=== PATIENT | male | born 1960 | race Caucasian/White ===

== ENCOUNTER 2025-02-25 21:00 | Inpatient (IN) ==
[2025-02-25 21:24] LABS: Hematocrit (blood only) 44.2 % (42.0-52.0); Hemoglobin 15.4 g/dL (14.0-18.0); Immature Granulocytes # (auto) 0.03 K/uL (0.01-0.20); Immature Granulocytes % (auto) 0.4 %; Mean Corpuscular Hemoglobin 30.3 pg (25.0-34.0); Mean Corpuscular Volume 86.8 fL (80.0-100.0); Platelet Count 225 K/uL (130-400); RDW Standard Deviation 42.8 fL (36.4-46.3); Red Blood Count 5.09 M/uL (4.70-6.10); White Blood Count 8.37 K/ul (4.8-10.8)
[2025-02-25 21:40] LABS: Alanine Aminotransferase 34 U/L (7-52); Albumin Globulin Ratio 1.1 (0.9-2); Albumin Level 4.0 gm/dl (3.4-5.0); Alkaline Phosphatase 102 U/L (34-104); Anion Gap 7 (3-11); Bilirubin,Total 0.7 mg/dl (0.2-1.0); Blood Urea Nitrogen 19 mg/dl (6-23); Calcium 8.9 mg/dl (8.6-10.3); Carbon Dioxide 27 mmol/L (21-32); Chloride 104 mmol/L (98-107); Globulin 3.8 gm/dl (2.5-4.0); Glucose 118 mg/dl (70-99(Fasting)); Lipase 25 U/L (11-82); Potassium 3.7 mmol/L (3.5-5.1); Sodium 138 mmol/L (136-145); Total Protein 7.8 gm/dl (6.0-8.3)
[2025-02-25] MEDS: SODIUM CHLORIDE 0.9% 1,000 ML IV ONE (21:46)
[2025-02-25] MEDS: ONDANSETRON INJ 2 MG/ML 2 ML VIAL IV STA (21:46)
[2025-02-25] MEDS: MoRPHine SULFATE 4 MG/ML 1 ML CARP\\VIAL IV STA (21:46)
[2025-02-25] MEDS: FAMOTIDINE 20MG IV PUSH 20 MG/5 ML SYR IV STA (21:46)
[2025-02-25] MEDS: OPTIRAY 320 100ml IV ONE (22:05)
--- NOTE | 2025-02-25 22:08 | Emergency Department Note ---
Impression & Plan Acute cholecystitis, Abdominal pain, acute, right upper quadrant ED Provider Note HISTORY OF PRESENT ILLNESS: Patient is a 64-year-old male presenting with right upper quadrant abdominal pain. Patient reports he has been having intermittent pain in his right upper quadrant for the last few days. He states that 3 days ago he had [place] Here he reports that it was diffusely across his upper abdomen and he felt nauseous. Described it as a burning sensation. He reports that after eating dinner this evening he had another bout of the pain. He rated it as 10 out of 10 and located to the right upper quadrant and said it was very sharp and radiated into his right posterior shoulder. He reports abdominal surgical history significant for an appendectomy. He denies any measured fevers but does report over the last few days he has had sweats and chills. Denies any dysuria or hematuria. ROS: as above PHYSICAL EXAM: Constitutional: Patient appears in no acute distress. HENT: Head: Normocephalic and atraumatic. Eyes: EOMI, PERRL Mouth/Throat: Mucous membranes moist. Neck: Trachea midline. Neck supple. Cardiovascular: RRR, No murmurs, rubs or gallops. Intact distal pulses. Pulmonary/Chest: No respiratory distress. Breath sounds clear and equal bilaterally. No wheezes or rales. Abdominal: Abdomen soft, no rebound or guarding. RUQ TTP Musculoskeletal: No edema, tenderness or deformity noted. Skin: Warm and dry. No rash, erythema, pallor or cyanosis Psychiatric: Appropriate mood and affect for situation. Neurological: Alert and keenly responsive. CN II-XII grossly intact, moving all extremities equally and fully. MDM: - Vitals signs showed hypertension - History obtained via patient. History as above. - Chronic conditions affecting care: HTN; CAD (S/p PCI) - Differential diagnoses include, but are not limited to: Biliary colic; cholangitis; cholecystitis; hepatitis; right lower lobe pneumonia; pulmonary embolism; pyelonephritis; herpes zoster; perforated duodenal ulcer - Order placed for continuous cardiac monitoring. At this time, monitor showed rate of 83 bpm with normal sinus rhythm, per my interpretation. - External medical records reviewed. - Laboratory workup interpreted by myself showed normal WBC; stable electrolytes; normal total bilirubin; slightly elevated AST (42); normal lipase - CT abdomen/pelvis with IV contrast showed a few stones in the neck of the gallbladder with mucosal thickening and distention concerning for acute cholecystitis. - RUQ US ordered. - Patient initially given 20 mg IV Pepcid, 4 mg IV Zofran and 4 mg IV morphine with 1 L normal saline for symptomatic management. Given IV Zosyn. - Discussed case with general surgery NEENA, Kashif Webb PA-C, at 22:23. Will be by to evaluate patient. - Updated by NEENA with surgery at 23:09 and recommended admission to hospitalist. - Discussion was had with welfare case worker about patient's case and need for admission - Hospitalist consulted for admission - [facility] [place] [facility] and management. ASSESSMENT AND PLAN: Diagnosis: Acute cholecystitis; acute right upper quadrant abdominal pain Plan: Admit Past Med/Surg History Problem List (Updated 02/25/25 @ 23:17 by Radha Randle MD) Abdominal pain, acute, right upper quadrant (Acute) Acute cholecystitis (Acute) Social History Smoking Status: Former smoker Preferred Language: Upper Sorbian Feels Safe at Home: Yes Allergies Allergies Allergy/AdvReac Type Severity Reaction Status Date / Time No Known Allergies Allergy Unverified 12/16/12 21:55 Home Meds Home Medications Medication Instructions Recorded Confirmed aspirin 81 mg tablet,delayed 81 mg PO QAM 02/25/25 02/25/25 release atorvastatin 80 mg tablet 80 mg PO QDL 02/25/25 02/25/25 carvedilol 12.5 mg tablet 12.5 mg PO BID 02/25/25 02/25/25 lisinopril 10 mg tablet 15 mg PO QAM 02/25/25 02/25/25 Results & Data (ED) Vital Signs Vital Signs - 24 hr 02/25/25 21:01 02/25/25 21:17 02/25/25 21:43 Temperature 36.5 C Temperature Source Temporal Artery Scan Pulse Rate 106 H 73 Pulse Rate [Apical] 83 Pulse Rhythm [Apical] Regular Pulse Strength [Apical] Normal Respiratory Rate 18 18 Respiratory Effort / Characteristics Non-Labored Spontaneous Non-Labored Spontaneous Respiratory Depth Normal Normal Respiratory Pattern Regular Blood Pressure 173/97 H Blood Pressure [Left Arm] 165/94 H Blood Pressure Mean 122 Blood Pressure Mean [Left Arm] 117 Pulse Oximetry 99 99 Oxygen Delivery Method Room Air Sepsis Recent Fever Within 48 Hours No Sepsis New/Unexplained Change in Mental Status N/A Sepsis Action Taken by Nursing No Action Required Laboratory Data 02/25/25 21:13 02/25/25 21:13 Lab Results 02/25/25 02/25/25 Range/Units 21:13 22:27 WBC 8.37 (4.8-10.8) K/ul RBC 5.09 (4.70-6.10) M/uL Hgb 15.4 (14.0-18.0) g/dL Hct 44.2 (42.0-52.0) % MCV 86.8 (80.0-100.0) fL MCH 30.3 (25.0-34.0) pg MCHC 34.8 (32.0-36.0) g/dL RDW Std Deviation 42.8 (36.4-46.3) fL RDW Coeff of Tommy 13.4 (11.5-14.5) % Plt Count 225 (130-400) K/uL MPV 10.2 (9.4-12.4) fL Immature Gran % (Auto) 0.4 % Neut % (Auto) 57.1 % Lymph % (Auto) 27.6 % [place] % (Auto) 12.4 % Eos % (Auto) 1.9 % Baso % (Auto) 0.6 % Neut # (Auto) 4.78 (1.40-6.50) K/uL Lymph # (Auto) 2.31 (1.20-3.40) K/uL [place] # (Auto) 1.04 H (0.11-0.59) K/uL Eos # (Auto) 0.16 (0.00-0.50) K/uL Baso # (Auto) 0.05 (0.00-0.20) K/uL Immature Gran # (Auto) 0.03 (0.01-0.20) K/uL Sodium 138 (136-145) mmol/L Potassium 3.7 (3.5-5.1) mmol/L Chloride 104 (98-107) mmol/L Carbon Dioxide 27 (21-32) mmol/L Anion Gap 7 (3-11) BUN 19 (6-23) mg/dl Creatinine 1.18 (0.6-1.4) mg/dl Est Cr Clr Drug Dosing Not Reportable eGFR 68.91 BUN/Creatinine Ratio 16.1 (10-20) Glucose 118 H (70-99(Fasting)) mg/dl Calcium 8.9 (8.6-10.3) mg/dl Total Bilirubin 0.7 (0.2-1.0) mg/dl AST 42 H (13-39) U/L ALT 34 (7-52) U/L Alkaline Phosphatase 102 (34-104) U/L Total Protein 7.8 (6.0-8.3) gm/dl Albumin 4.0 (3.4-5.0) gm/dl Globulin 3.8 (2.5-4.0) gm/dl Albumin/Globulin Ratio 1.1 (0.9-2) Lipase 25 (11-82) U/L Urine Color Yellow Urine Appearance Clear (Clear) Urine pH 7.5 (4.5-7.5) Ur Specific [place] > 1.045 H (1.000-1.030) Urine Protein Trace H (Negative) Urine Glucose (UA) Negative (Negative) Urine Ketones Trace H (Negative) Urine Blood Negative (Negative) Urine Nitrite Negative (Negative) Urine Bilirubin Negative (Negative) Urine Urobilinogen Positive H (Negative) Ur Leukocyte Esterase Negative (Negative) Urine WBC (Auto) 0-5 (0-5) /hpf Urine RBC (Auto) 3-5 H (0-2) /hpf U Hyaline Cast (Auto) 0-2 (0-2) /lpf U Epithel Cells (Auto) 0-2 (0-2) /hpf Urine Bacteria (Auto) None Seen (None Seen) Urine Comment Administered Medications Discontinued Medications Sodium Chloride (Nss) 1,000 mls @ 999 mls/hr IV .Q1H1M ONE Stop: 02/25/25 22:41 Last Admin: 02/25/25 21:46 Dose: 999 mls/hr Documented By: RACHEALW Famotidine (Pepcid 20mg Iv Push) 20 mg in 5 mls @ 2.5 mls/min IV NOW STA Stop: 02/25/25 21:42 Last Admin: 02/25/25 21:46 Dose: 2.5 mls/min Documented By: INES Piperacillin Sod/Tazobactam Sod (Zosyn) 4.5 gm in 100 mls @ 200 mls/hr IV NOW ONE; Protocol Stop: 02/25/25 22:51 Last Infusion: 02/25/25 23:14 Dose: Infused Documented By: Admin: 02/25/25 22:35 Dose: 200 mls/hr Documented By: GURVINDER Ioversol (Optiray 320 100ml) 90 ml IV ONCE ONE Stop: 02/25/25 22:05 Last Admin: 02/25/25 22:05 Dose: 90 ml Documented By: LOBITO Morphine Sulfate (Morphine Sulfate 4 Mg/Ml 1 Ml Carp\Vial) 4 mg IV NOW STA Stop: 02/25/25 21:42 Last Admin: 02/25/25 21:46 Dose: 4 mg Documented By: INES Ondansetron HCl (Ondansetron Inj 2 Mg/Ml 2 Ml Vial) 4 mg IV NOW STA Stop: 02/25/25 21:42 Last Admin: 02/25/25 21:46 Dose: 4 mg Documented By: INES Imaging Data Radiologist's Impression: Abdomen/Pelvis CT 02/25/25 21:26 Exam(s): CT ABDOMEN + PELVIS With Contrast IV Amt: 90 ml optiray 320 EXAM: CT Abdomen and Pelvis With Intravenous Contrast CLINICAL HISTORY: Reason for exam: RUQ abd pain. TECHNIQUE: Axial computed tomography images of the abdomen and pelvis with intravenous contrast. CTDI is 26.35 mGy and DLP is 1279.89 mGy-cm. Automated exposure control was utilized for the study. A dose lowering technique was utilized adhering to the principles of ALARA. CONTRAST: Patient received 90 ml optiray 320 of IV contrast COMPARISON: CT 12/17/2012. FINDINGS: ABDOMEN: Liver: Unremarkable. Gallbladder and bile ducts: A few stones in the neck of the gallbladder with mucosal thickening and distention. The appearance is concerning for acute cholecystitis. Pancreas: Unremarkable. Spleen: Unremarkable. Adrenals: Unremarkable. Kidneys and ureters: Nonobstructing nephrolithiasis bilaterally. Stomach and bowel: Colonic diverticulosis without acute diverticulitis. PELVIS: Appendix: No findings to suggest acute appendicitis. Bladder: Unremarkable. Reproductive: Unremarkable as visualized. ABDOMEN and PELVIS: Intraperitoneal space: Unremarkable. No free air. No significant fluid collection. Bones/joints: No acute fracture. Soft tissues: Unremarkable. Vasculature: Unremarkable. Lymph nodes: Unremarkable. IMPRESSION: A few stones in the neck of the gallbladder with mucosal thickening and distention. The appearance is concerning for acute cholecystitis. Electronically signed by: Hank Sharma MD 02/25/25 22:21 PM Discharge Plan Visit Data Chief Complaint: Abdominal Pain Stated Complaint: RUQ ABD PAIN PAST ~0.5 HR, OFF & ON PAST FEW DAYS ED Provider: Radha Randle Discharge Problem: Acute cholecystitis, Abdominal pain, acute, right upper quadrant Patient Disposition: Admitted As Inpatient Condition: Fair Forms Stand Alone Forms: My [facility] AnonymAsk Prescriptions Prescriptions: No Action atorvastatin 80 mg tablet 80 mg PO QDL carvedilol 12.5 mg tablet 12.5 mg PO BID lisinopril 10 mg tablet 15 mg PO QAM aspirin [Aspirin Low-Strength] 81 mg Tablet,Delayed Release (Dr/Ec) 81 mg PO QAM Referrals Referrals: Mounika Segura MD [Primary Care Provider] -
--- NOTE | 2025-02-25 22:22 | CT Scan Report ---
Exam(s): CT ABDOMEN + PELVIS With Contrast IV Amt: 90 ml optiray 320 EXAM: CT Abdomen and Pelvis With Intravenous Contrast CLINICAL HISTORY: Reason for exam: RUQ abd pain. TECHNIQUE: Axial computed tomography images of the abdomen and pelvis with intravenous contrast. CTDI is 26.35 mGy and DLP is 1279.89 mGy-cm. Automated exposure control was utilized for the study. A dose lowering technique was utilized adhering to the principles of ALARA. CONTRAST: Patient received 90 ml optiray 320 of IV contrast COMPARISON: CT 12/17/2012. FINDINGS: ABDOMEN: Liver: Unremarkable. Gallbladder and bile ducts: A few stones in the neck of the gallbladder with mucosal thickening and distention. The appearance is concerning for acute cholecystitis. Pancreas: Unremarkable. Spleen: Unremarkable. Adrenals: Unremarkable. Kidneys and ureters: Nonobstructing nephrolithiasis bilaterally. Stomach and bowel: Colonic diverticulosis without acute diverticulitis. PELVIS: Appendix: No findings to suggest acute appendicitis. Bladder: Unremarkable. Reproductive: Unremarkable as visualized. ABDOMEN and PELVIS: Intraperitoneal space: Unremarkable. No free air. No significant fluid collection. Bones/joints: No acute fracture. Soft tissues: Unremarkable. Vasculature: Unremarkable. Lymph nodes: Unremarkable. IMPRESSION: A few stones in the neck of the gallbladder with mucosal thickening and distention. The appearance is concerning for acute cholecystitis. Electronically signed by: Hank Sharma MD 02/25/25 22:21 PM
[2025-02-25] MEDS: PIPERACILLIN/TAZOBACTAM 4.5 GM/100 ML BAG IV ONE (22:35)
[2025-02-25 22:37] LABS: Appearance Urine Clear (Clear); Bacteria Urine Automated None Seen (None Seen); Cast Urine Automated 0-2 /lpf (0-2); Epithelial Cell Urine Auto 0-2 /hpf (0-2); Glucose Urine UA Negative (Negative); WBC Urine Automated 0-5 /hpf (0-5)
--- NOTE | 2025-02-25 23:24 | History & Physical Report ---
Date of Service February 25, 2025 Assessment & Plan (1) Acute cholecystitis: Plan: Assessment and plan below following discussion of case with ED provider and reviewing patient history/pertinent normal/abnormal diagnostic test results. Acute calculous cholecystitis No sepsis for now hx CAD status post stent (2018), stable from cardiac standpoint as of outpatient [facility] cardiology note from March 2024 hypertension, elevated secondary discomfort hyperlipidemia, on statin Rx urolithiasis status post surgery prediabetes, hemoglobin A1c of 5.30 December 2024 past tobacco abuse Admit to [facility] General Surgery consult re: acute cholecystitis (Patient already seen at the ER by provider. Surgery contemplated tomorrow a.m.) Acceptable risk for cardiac complications resulting from prospective procedure Revised Cardiac Risk Index (RCRI): 1. High-risk type of surgery (examples include vascular and any open intraperitoneal or intrathoracic procedures). No 2. History of ischemic heart disease (history of myocardial infarction or positive exercise test, current compliant of chest pain considered to be secondary to myocardial ischemia, use of nitrate therapy, or ECG with pathological Q waves; do not count prior coronary revascularization procedure unless one of the other criteria for ischemic heart disease is present). Yes 3. History of heart failure. No 4. History of cerebrovascular disease. No 5. Diabetes mellitus requiring treatment with insulin. No 6. Preoperative serum creatinine >2.0. No Pt has revised cardiac index score of 1 points. (Class II Risk.) 1.1 % 30-day risk of , MA, or cardiac arrest. Resume home aspirin for secondary CAD prevention once bleeding risk is deemed to be minimal/manageable on General Surgery follow-up evaluation. DVT prophylaxis. SCDs Re: Possible procedure Full code Patient requesting updates providers. Ms. Abena Palacios, contact #[phone]. Text document was generated using [employer] voice recognition software. It may contain grammatical or spelling errors. Kindly contact undersigned for clarification of any documentation item in question. History of Present Illness Chief Complaint: Right-sided abdominal pain Primary Care Provider: Mounika Segura MD History obtained from patient, family, and records. Medical history significant for CAD status post stent (2018), hypertension, hyperlipidemia, urolithiasis status post surgery, GERD, prediabetes, rosacea, past tobacco abuse. 3 days history of intermittent achy right upper quadrant pain with nausea symptoms, somewhat worse after meals. Somewhat burning. Denies chest pain, SOB, fever, chills. Some radiation to the hip right shoulder. Patient had worsening discomfort after dinner tonight. IV Zosyn administered at the ER for cholecystitis. Medical History as above Surgical History : Urologic procedures, appendectomy Family History : Alcoholism, DM, stroke, liver cancer Personal/Social history : Past tobacco abuse, occasional EtOH intake, retired [employer] employee Allergies Allergy/AdvReac Type Severity Reaction Status Date / Time No Known Allergies Allergy Unverified 12/16/12 21:55 Home Medications Medication Instructions Recorded Confirmed Type aspirin 81 mg tablet,delayed 81 mg PO QAM 02/25/25 02/25/25 History release atorvastatin 80 mg tablet 80 mg PO QDL 02/25/25 02/25/25 History carvedilol 12.5 mg tablet 12.5 mg PO BID 02/25/25 02/25/25 History lisinopril 10 mg tablet 15 mg PO QAM 02/25/25 02/25/25 History Past Med/Surg History Problem List (Updated 02/26/25 @ 00:05 by Kashif Webb PA-C) Abdominal pain, acute, right upper quadrant (Acute) Acute cholecystitis (Acute) Medical History (Updated 02/26/25 @ 00:05 by Kashif Webb PA-C) Coronary artery disease Hyperlipidemia Hypertension Surgical History (Updated 02/26/25 @ 00:05 by Kashif Webb PA-C) History of appendectomy Social History Smoking Status: Former smoker Tobacco Type: Cigarettes Second Hand Exposure: No; Do You Dip or Chew Tobacco: Yes; Tobacco Cessation Education Requested by Patient: No Hx Alcohol Use: Yes Alcohol type: beer, wine and hard liquor Hx Substance Use: No Preferred Language: Dominican Communication Ability: Effective Expediter Required: No Beliefs That Will Affect Care: None and Protestant Current Living Situation: Spouse Feels Safe at Home: Yes Assistive Devices: None Review of Systems Review of Systems: As per HPI, all other systems reviewed and negative Physical Exam Physical Exam: GENERAL: Comfortable, pleasant, obese, no respiratory distress SKIN: Normal color, warm HEENT: Partial alopecia, pink palpebral conjunctivae, no ptosis, dry buccal mucosa NECK : Supple, no tenderness CHEST : CTA, no tenderness HEART : RRR, no obvious murmurs ABDOMEN: Some distention, RUQ tenderness EXTREMITIES : No LE swelling/tenderness, palpable pulses, no other conspicuous deformities noted NEUROLOGIC : Coherent, no facial asymmetry, no other gross focality Results & Data Results & Data Vital Signs (Past 12 Hours) Vital Signs Temp Pulse Pulse Resp BP BP Pulse Ox 02/25/25 21:43 83 18 165/94 H 99 02/25/25 21:17 73 02/25/25 21:01 36.5 C 106 H 18 173/97 H 99 O2 Del Method 02/25/25 21:43 02/25/25 21:17 02/25/25 21:01 Room Air Laboratory Results Laboratory Results WBC 8.37 K/ul (4.8-10.8) 02/25/25 21:13 RBC 5.09 M/uL (4.70-6.10) 02/25/25 21:13 Hgb 15.4 g/dL (14.0-18.0) 02/25/25 21:13 Hct 44.2 % (42.0-52.0) 02/25/25 21:13 MCV 86.8 fL (80.0-100.0) 02/25/25 21:13 MCH 30.3 pg (25.0-34.0) 02/25/25 21:13 MCHC 34.8 g/dL (32.0-36.0) 02/25/25 21:13 RDW Std Deviation 42.8 fL (36.4-46.3) 02/25/25 21:13 RDW Coeff of Tommy 13.4 % (11.5-14.5) 02/25/25 21:13 Plt Count 225 K/uL (130-400) 02/25/25 21:13 MPV 10.2 fL (9.4-12.4) 02/25/25 21:13 Immature Gran % (Auto) 0.4 % 02/25/25 21:13 Neut % (Auto) 57.1 % 02/25/25 21:13 Lymph % (Auto) 27.6 % 02/25/25 21:13 [place] % (Auto) 12.4 % 02/25/25 21:13 Eos % (Auto) 1.9 % 02/25/25 21:13 Baso % (Auto) 0.6 % 02/25/25 21:13 Neut # (Auto) 4.78 K/uL (1.40-6.50) 02/25/25 21:13 Lymph # (Auto) 2.31 K/uL (1.20-3.40) 02/25/25 21:13 [place] # (Auto) 1.04 K/uL (0.11-0.59) H 02/25/25 21:13 Eos # (Auto) 0.16 K/uL (0.00-0.50) 02/25/25 21:13 Baso # (Auto) 0.05 K/uL (0.00-0.20) 02/25/25 21:13 Immature Gran # (Auto) 0.03 K/uL (0.01-0.20) 02/25/25 21:13 Sodium 138 mmol/L (136-145) 02/25/25 21:13 Potassium 3.7 mmol/L (3.5-5.1) 02/25/25 21:13 Chloride 104 mmol/L (98-107) 02/25/25 21:13 Carbon Dioxide 27 mmol/L (21-32) 02/25/25 21:13 Anion Gap 7 (3-11) 02/25/25 21:13 BUN 19 mg/dl (6-23) 02/25/25 21:13 Creatinine 1.18 mg/dl (0.6-1.4) 02/25/25 21:13 Est Cr Clr Drug Dosing Not Reportable 02/25/25 21:13 eGFR 68.91 02/25/25 21:13 BUN/Creatinine Ratio 16.1 (10-20) 02/25/25 21:13 Glucose 118 mg/dl (70-99(Fasting)) H 02/25/25 21:13 Calcium 8.9 mg/dl (8.6-10.3) 02/25/25 21:13 Total Bilirubin 0.7 mg/dl (0.2-1.0) 02/25/25 21:13 AST 42 U/L (13-39) H 02/25/25 21:13 ALT 34 U/L (7-52) 02/25/25 21:13 Alkaline Phosphatase 102 U/L (34-104) 02/25/25 21:13 Total Protein 7.8 gm/dl (6.0-8.3) 02/25/25 21:13 Albumin 4.0 gm/dl (3.4-5.0) 02/25/25 21:13 Globulin 3.8 gm/dl (2.5-4.0) 02/25/25 21:13 Albumin/Globulin Ratio 1.1 (0.9-2) 02/25/25 21:13 Lipase 25 U/L (11-82) 02/25/25 21:13 Urine Color Yellow 02/25/25 22: Urine Appearance Clear (Clear) 02/25/25 22: Urine pH 7.5 (4.5-7.5) 02/25/25: Ur Specific [place] > 1.045 (1.000-1.030) H 02/25/25 22: Urine Protein Trace (Negative) H 02/25/25 22: Urine Glucose (UA) Negative (Negative) 02/25/25: Urine Ketones Trace (Negative) H 02/25/25: Urine Blood Negative (Negative) 02/25/25: Urine Nitrite Negative (Negative) 02/25/25: Urine Bilirubin Negative (Negative) 02/25/25: Urine Urobilinogen Positive (Negative) H 02/25/25: Ur Leukocyte Esterase Negative (Negative) 02/25/25: Urine WBC (Auto) 0-5 /hpf (0-5) 02/25/25 22: Urine RBC (Auto) 3-5 /hpf (0-2) H 02/25/25 22: U Hyaline Cast (Auto) 0-2 /lpf (0-2) 02/25/25: U Epithel Cells (Auto) 0-2 /hpf (0-2) 02/25/25: Urine Bacteria (Auto) None Seen (None Seen) 02/25/25: Urine Comment 02/25/25: Impressions Abdomen/Pelvis CT 02/25/25 21:26 Exam(s): CT ABDOMEN + PELVIS With Contrast IV Amt: 90 ml optiray 320 EXAM: CT Abdomen and Pelvis With Intravenous Contrast CLINICAL HISTORY: Reason for exam: RUQ abd pain. TECHNIQUE: Axial computed tomography images of the abdomen and pelvis with intravenous contrast. CTDI is 26.35 mGy and DLP is 1279.89 mGy-cm. Automated exposure control was utilized for the study. A dose lowering technique was utilized adhering to the principles of ALARA. CONTRAST: Patient received 90 ml optiray 320 of IV contrast COMPARISON: CT 12/17/2012. FINDINGS: ABDOMEN: Liver: Unremarkable. Gallbladder and bile ducts: A few stones in the neck of the gallbladder with mucosal thickening and distention. The appearance is concerning for acute cholecystitis. Pancreas: Unremarkable. Spleen: Unremarkable. Adrenals: Unremarkable. Kidneys and ureters: Nonobstructing nephrolithiasis bilaterally. Stomach and bowel: Colonic diverticulosis without acute diverticulitis. PELVIS: Appendix: No findings to suggest acute appendicitis. Bladder: Unremarkable. Reproductive: Unremarkable as visualized. ABDOMEN and PELVIS: Intraperitoneal space: Unremarkable. No free air. No significant fluid collection. Bones/joints: No acute fracture. Soft tissues: Unremarkable. Vasculature: Unremarkable. Lymph nodes: Unremarkable. IMPRESSION: A few stones in the neck of the gallbladder with mucosal thickening and distention. The appearance is concerning for acute cholecystitis. Electronically signed by: Hank Sharma MD 02/25/25 22:21 PM
[2025-02-25] MEDS ORDERED: LORazepam 0.5 MG TAB PO PRN (23:42)
[2025-02-25] MEDS ORDERED: PROMETHAZINE 6.25 MG/50.25 ML BAG IV PRN (23:42)
[2025-02-25] MEDS ORDERED: ACETAMINOPHEN 325 MG TAB PO PRN (23:42)
--- NOTE | 2025-02-25 23:49 | Ultrasound Report ---
Exam(s): US GALLBLADDER EXAM: US Abdomen Limited, Right Upper Quadrant CLINICAL HISTORY: Reason for exam: RUQ abd pain. OTHER: Other Notes: RUQ pain x couple days. CT today shows possible acute cholecystitis. PANC WNL as seen. LIVER 16 cm. ?Hemangioma left lobe 0.7 x 0.6 x 0.8 cm. GB sludge and stones near neck, slightly distended. Wall 0.5 cm with edematous appearance. Negative Neves's. CBD 0.3 cm. RK 11.5 cm. No hydro. TECHNIQUE: Real-time ultrasound of the right upper quadrant with image documentation. COMPARISON: CT scan of the same date. FINDINGS: Liver: The liver is of increased echogenicity. There is an 8 mm echogenic focus noted in the left lobe of the liver.. No intrahepatic bile duct dilation. Gallbladder: The gallbladder is distended containing sludge and calculi. Gallbladder wall measured 5 mm. Negative Neves sign was reported. Common bile duct: Unremarkable as visualized. No stones. The common bile duct measured 3 mm.. Pancreas: The pancreas was limitedly visualized. The visualized portions are unremarkable.. Right kidney: No hydronephrosis. IMPRESSION: The gallbladder is distended containing sludge and calculi. There is thickening of the gallbladder wall. A- Neves sign was reported. Liver is of increased echogenicity which may be due to fatty infiltration and/or hepatocellular disease. An 8 mm echogenic focus in the left lobe of the liver may represent a hemangioma. Electronically signed by: Frank Santiago MD 02/25/25 23:47 PM
--- NOTE | 2025-02-25 23:55 | Surgery Consultation ---
<Statement entered by Ryan Whitehead MD - 02/26/25 15:07> patient with slightly elevated bilirubin this morning. had MCRP, showing no evidence of ductal obstruction, will plan for cholecystectomy. risks were discussed w patient and they include bleeding, infection, injury to surrounding structures, cystic stump leak, ductal injury, need for further procedures, and cardiopulmonary events that can occur. alternatives include no surgery, which the patient declines he wishes to proceed w surgery. all questions were answered Date of Consultation February 25, 2025 Assessment & Plan (1) Acute cholecystitis: Plan Patient is a 64-year-old male with a past medical history significant for hypertension, hyperlipidemia, and coronary artery disease status post stenting, who presents to [facility] emergency department complaining of abdominal pain x [address] and ultrasound evidence suggestive of acute cholecystitis. Given his past medical history we are recommending admission to the medical service for preoperative clearance and tentatively plan to proceed to the operating room tomorrow for a laparoscopic, possible open, cholecystectomy. For now, would keep the patient n.p.o., IV fluids, IV pain medication, Zosyn for acute cholecystitis, activity as tolerated. Appreciate hospitalist recommendations, general surgery will continue to follow for now. History of Present Illness Reason for Consultation: RUQ abdominal pain, possible cholecystitis Requesting Physician: Dr. Radha Randle Attending Physician: Dr. Ryan Whitehead History of Present Illness Patient is a 64-year-old male with a past medical history significant for hypertension, hyperlipidemia, and coronary artery disease status post stenting, who presents to [facility] emergency department complaining of abdominal pain x 4 days. Patient states that his abdominal pain began approximately 4 days ago, [place], localized to the right upper quadrant, described as sharp and stabbing, moderate to severe in intensity, with radiation to his shoulders bilaterally, but was short-lived and resolved spontaneously. He then had a second similar episode the following day, but again resolved spontaneously. The patient was unsure if his abdominal pain was related to the foods that he was eating, namely sausage with potato salad and egg nog. Other individuals ate his food as well and did not feel ill. He states that he was then feeling in his normal state of health until this evening when he developed recurrence of this right upper quadrant abdominal pain approximately 2 hours after eating dinner, roast beef with gravy and mashed potatoes. He states that it was very severe and was associated with significant nausea but no vomiting as well as diaphoresis and shaking chills. He then proceeded to the emergency department for evaluation. Upon his initial evaluation he was hypertensive but otherwise hemodynamically stable and afebrile. His exam was significant for moderate right upper quadrant tenderness without of any overt peritoneal signs. His labs were relatively unremarkable, his white blood cell count was normal and his LFTs were essentially normal. He then had a CAT scan of the abdomen pelvis which showed a distended gallbladder with possible wall thickening and sludge, and then had an abdominal ultrasound which showed gallbladder wall thickening with stones and a positive sonographic Neves sign. General surgery was then consulted. Upon my evaluation, the patient had recently received IV morphine and his abdominal pain had improved greatly. He denied any chest pain, shortness of breath, dyspnea, constipation, diarrhea, or hematuria/dysuria. Allergies Allergy/AdvReac Type Severity Reaction Status Date / Time No Known Allergies Allergy Verified 02/26/25 15:01 Home Medications Medication Instructions Recorded Confirmed Type aspirin 81 mg tablet,delayed 81 mg PO QAM 02/25/25 02/25/25 History release atorvastatin 80 mg tablet 80 mg PO QDL 02/25/25 02/25/25 History carvedilol 12.5 mg tablet 12.5 mg PO BID 02/25/25 02/25/25 History lisinopril 10 mg tablet 15 mg PO QAM 02/25/25 02/25/25 History Patient History Medical History Coronary artery disease Hyperlipidemia Hypertension Surgical History History of appendectomy Social History Smoking Status: Former smoker Tobacco Type: Cigarettes Second Hand Exposure: No; Do You Dip or Chew Tobacco: Yes; Tobacco Cessation Education Requested by Patient: No Hx Alcohol Use: Yes Alcohol type: beer, wine and hard liquor Hx Substance Use: No Preferred Language: Indonesian Communication Ability: Effective Mixing Place Supervisor Required: No Beliefs That Will Affect Care: None and Religion Current Living Situation: Spouse Feels Safe at Home: Yes Assistive Devices: None Review of Systems Review of Systems: All systems reviewed & are unremarkable except as noted in HPI & below Physical Exam Physical Exam: Gen: Awake and alert, resting comfortably in bed in NAD CV: RRR PULM: non-labored breathing Abd: Abd soft, mildly distended and protuberant, mildly tender to palpation of the right upper quadrant, positive Neves sign ext: no edema to bilateral lower ext, SCDs in place, non-tender, feet warm and well perfused Results & Data Vital Signs (Past 12 Hours) Vital Signs Temp Pulse Pulse Resp BP BP Pulse Ox 02/25/25 21:43 83 18 165/94 H 99 02/25/25 21:17 73 02/25/25 21:01 36.5 C 106 H 18 173/97 H 99 O2 Del Method 02/25/25 21:43 02/25/25 21:17 02/25/25 21:01 Room Air Diagnostic Findings Abdominal ultrasound: IMPRESSION: The gallbladder is distended containing sludge and calculi. There is thickening of the gallbladder wall. A- Neves sign was reported. Liver is of increased echogenicity which may be due to fatty infiltration and/or hepatocellular disease. An 8 mm echogenic focus in the left lobe of the liver may represent a hemangioma. CT abd/pelvis FINDINGS: ABDOMEN: Liver: Unremarkable. Gallbladder and bile ducts: A few stones in the neck of the gallbladder with mucosal thickening and distention. The appearance is concerning for acute cholecystitis. Pancreas: Unremarkable. Spleen: Unremarkable. Adrenals: Unremarkable. Kidneys and ureters: Nonobstructing nephrolithiasis bilaterally. Stomach and bowel: Colonic diverticulosis without acute diverticulitis. PELVIS: Appendix: No findings to suggest acute appendicitis. Bladder: Unremarkable. Reproductive: Unremarkable as visualized. ABDOMEN and PELVIS: Intraperitoneal space: Unremarkable. No free air. No significant fluid collection. Bones/joints: No acute fracture. Soft tissues: Unremarkable. Vasculature: Unremarkable. Lymph nodes: Unremarkable. IMPRESSION: A few stones in the neck of the gallbladder with mucosal thickening and distention. The appearance is concerning for acute cholecystitis. PG Care Time/CCT Total # of Minutes Spent Total Time Spent with Patient: Total time spent is greater than 50% in coordination of care (as documented) at patient's floor/unit and/or counseling patient: [place] [address] IN/OBS CONSULT LVL 5,80M Patient Type New Medical Decision Making Straight Forward Diagnoses Acute cholecystitis K81.0
[2025-02-26] MEDS: NSS + 20MEQ KCL 20 MEQ/1,000 ML BAG IV ONE (00:17)
[2025-02-26] MEDS: PIPERACILLIN/TAZOBACTAM 4.5 GM/100 ML BAG IV SCH (04:19)
[2025-02-26 06:35] LABS: Hematocrit (blood only) 37.7 % (42.0-52.0); Hemoglobin 12.8 g/dL (14.0-18.0); Immature Granulocytes # (auto) 0.02 K/uL (0.01-0.20); Immature Granulocytes % (auto) 0.2 %; Mean Corpuscular Hemoglobin 29.9 pg (25.0-34.0); Mean Corpuscular Volume 88.1 fL (80.0-100.0); Platelet Count 183 K/uL (130-400); RDW Standard Deviation 43.5 fL (36.4-46.3); Red Blood Count 4.28 M/uL (4.70-6.10); White Blood Count 8.43 K/ul (4.8-10.8)
[2025-02-26 07:03] LABS: Alanine Aminotransferase 319.0 U/L (7-52); Albumin Globulin Ratio 1.3 (0.9-2); Albumin Level 3.5 gm/dl (3.4-5.0); Alkaline Phosphatase 143.0 U/L (34-104); Anion Gap 7.0 (3-11); Bilirubin,Total 1.1 mg/dl (0.2-1.0); Blood Urea Nitrogen 19.0 mg/dl (6-23); Calcium 8.0 mg/dl (8.6-10.3); Carbon Dioxide 24.0 mmol/L (21-32); Chloride 108.0 mmol/L (98-107); Creatinine Clr Calc Pharmacy 69.4 ml/min; Globulin 2.6 gm/dl (2.5-4.0); Glucose 159.0 mg/dl (70-99(Fasting)); Potassium 4.4 mmol/L (3.5-5.1); Sodium 139.0 mmol/L (136-145); Total Protein 6.1 gm/dl (6.0-8.3)
[2025-02-26] MEDS: ATORVASTATIN 40 MG TAB PO SCH (12:42)
--- NOTE | 2025-02-26 13:13 | Magnetic Resonance Report ---
MR MRCP HISTORY: 64 years-old Male elevated LFT, eval for choledocholithiasis acute upper abdominal pain in a patient with history of cholelithiasis. COMPARISON: Ultrasound and CT abdomen and pelvis studies February 25, 2025, also 12/17/2012 TECHNIQUE: MRCP without IV contrast was obtained. FINDINGS: The visualized lower thorax appears unremarkable. Unremarkable spleen, pancreas and left adrenal glan d. Subcentimeter adrenal myelolipoma again noted. No hydronephrosis. There are a few subcentimeter pr obable cysts of the kidneys. Nonobstructing bilateral nephrolithiasis are better seen on comparison C T study. Mild bilateral perinephric stranding. No bowel obstruction or bowel wall thickening. Colonic diverticulosis. Indeterminate 9 mm T2 hyperintense lesion of the left hepatic lobe which was echogen ic on the ultrasound may represent a small hemangioma. Layering gallstones and sludge within the gallbladder lumen. The gallbladder is mildly distended with mild wall thickening again noted. Trace pericholecystic stranding. Normal caliber common bile duct, 5 mm. No choledocholithiasis identified. No pancreatic ductal dilation is seen. IMPRESSION: 1. Cholelithiasis with findings suspicious for acute cholecystitis. 2. No biliary ductal dilation or choledocholithiasis identified on this motion degraded exam. ACT 112: Negative or not required by law. The above report was generated using voice recognition software. It may contain grammatical, syntax o r spelling errors. Electronically signed by: Abad Boswell M.D. 02/26/2025 1:11 PM
--- NOTE | 2025-02-26 14:12 | Hospitalist Progress Note ---
Date of Service February 26, 2025 Assessment & Plan (1) Cholelithiasis and acute cholecystitis without obstruction: (2) Hypertension: (3) Coronary artery disease: Plan Patient 64-year-old gentleman with acute cholecystitis with cholelithiasis. Continue antibiotics Continue pain control Communication with surgical team, anticipate taking patient to OR for cholecystectomy sometime today Patient is medically maximized for anticipated surgical intervention Patient and updated at bedside Admission and Anticipated Discharge Date Admission Date: February 25, 2025 Subjective Patient states that his abdominal pain has improved now that he has not eaten or drank anything. No fevers. Physical Exam Physical Exam: Constitutional: Alert, nontoxic HEENT: Mucous membranes moist. Lungs: Clear to auscultation, decreased, no wheezes rales or rhonchi CV: S1-S2, regular Abdomen: Soft, right upper quadrant tenderness, positive Neves sign, no no rigidity, Extremities: No significant edema Neuro: No focal deficits Psych: Cooperative, normal mood Results & Data Results & Data Vital Signs (Past 12 Hours) Vital Signs Temp Pulse Resp BP Pulse Ox O2 Del Method 02/26/25 07:24 36.7 C 78 20 103/63 96 Room Air Diagnostic Findings Reviewed imaging, laboratory and diagnostic studies. Pertinent findings as below.WBCs 8.4 Hemoglobin 12.8 Platelets 183 Electrolytes stable Creatinine 1.27 Bilirubin 1.1 AST 297, increased ALT 319, increased A alk phos 143, increased MRCP: Consistent with acute cholecystitis and cholelithiasis. No evidence of biliary duct dilatation or choledocholithiasis.
[2025-02-26] MEDS ORDERED: PROPOFOL IV EMULSION 10 MG/ML 20 ML VIAL IV ONE (14:15)
[2025-02-26] MEDS ORDERED: GLYCOPYRROLATE 0.2 MG/ML VIAL ONE (14:15)
[2025-02-26] MEDS ORDERED: ROCURONIUM BROMIDE 10 MG/ML 5 ML VIAL IV ONE (14:15)
[2025-02-26] MEDS ORDERED: ONDANSETRON INJ 2 MG/ML 2 ML VIAL ONE (14:15)
[2025-02-26] MEDS ORDERED: DEXAMETHASONE SOD INJ 4 MG/ML VIAL ONE (14:15)
[2025-02-26] MEDS ORDERED: LIDOCAINE 2% 2 ML VIAL/AMP(20MG/ML) INFIL ONE (14:15)
[2025-02-26] MEDS ORDERED: MIDAZOLAM HCL 1 MG/ML 2ML VIAL ONE (14:16)
[2025-02-26] MEDS ORDERED: SUGAMMADEX SODIUM 200 MG/2 ML VIAL IV ONE (14:20)
[2025-02-26] MEDS ORDERED: PROMETHAZINE HCL 6.25 MG in SODIUM CHLORIDE 0.9% 50 ML IV PRN (15:00)
[2025-02-26] MEDS ORDERED: ONDANSETRON INJ 2 MG/ML 2 ML VIAL IV PRN (15:00)
[2025-02-26] MEDS ORDERED: HYDROmorphone INJ 1 MG/ML SYRINGE IV PRN (15:00)
[2025-02-26] MEDS ORDERED: ATROPINE SULFATE 0.1 MG/ML 10ML SYR IV PRN (15:00)
--- NOTE | 2025-02-26 15:01 | Anesthesiology Consultation ---
Date of Service February 26, 2025 Assessment & Plan (1) Encounter for pre-operative examination: Chart Review Chart Review: Acceptable Risk for Surgery and Patient NOT seen in Pre Admission Testing Consults Requested none History Surgery Operation Date: 02/26/25 07:00 Proposed Procedures p Robotic Laparoscopic Cholecystectomy - Ryan Whitehead MD Height/Weight Height: 5 ft 9 in Weight: 102.6 kg Allergies Allergy/AdvReac Type Severity Reaction Status Date / Time No Known Allergies Allergy Verified 02/26/25 15:01 Medications Home Medications Medication Instructions Recorded Confirmed Last Taken aspirin 81 mg tablet,delayed 81 mg PO QAM 02/25/25 02/25/25 Unknown release atorvastatin 80 mg tablet 80 mg PO QDL 02/25/25 02/25/25 Unknown carvedilol 12.5 mg tablet 12.5 mg PO BID 02/25/25 02/25/25 Unknown lisinopril 10 mg tablet 15 mg PO QAM 02/25/25 02/25/25 Unknown Active Medications Generic Name Dose Route Start Last Admin Trade Name Freq PRN Reason Stop Dose Admin Atorvastatin Calcium 80 mg 02/26/25 11:30 02/26/25 12:42 Atorvastatin 40 Mg Tab PO 03/28/25 11:29 80 mg QDL JAMES Administration Carvedilol 12.5 mg 02/26/25 01:40 02/26/25 02:02 Carvedilol 12.5 Mg Tab PO 03/28/25 01:39 12.5 mg BID JAMES Administration Piperacillin Sod/Tazobactam Sod 4.5 gm in 100 mls @ 25 mls/hr 02/26/25 04:00 02/26/25 12:39 Zosyn IV 03/08/25 03:59 25 mls/hr Q8H JAMES Administration Protocol Lisinopril 15 mg 02/26/25 09:00 02/26/25 08:26 Lisinopril 5 Mg Tab PO 03/28/25 08:59 15 mg QAM JAMES Administration Past Medical History Medical History (Updated 02/26/25 @ 15:08 by Wong Wadsworth MD) Encounter for pre-operative examination Coronary artery disease Hyperlipidemia Hypertension hx CAD status post stent (2018), stable from cardiac standpoint as of [place] [facility] [place] from March 2024 hypertension, elevated secondary discomfort hyperlipidemia, on statin Rx urolithiasis status post surgery prediabetes, hemoglobin A1c of 5.30 December 2024 past tobacco abuse Past Surgical History Surgical History History of appendectomy Social History Smoking Status: Former smoker Do You Dip or Chew Tobacco: Yes Hx Alcohol Use: Yes Alcohol type: beer, wine and hard liquor alcohol intake frequency: holidays/special occasions only Hx Substance Use: No Physical Exam Vital Signs Last Vital Signs Temp 36.7 C 02/26/25 07:24 Pulse 78 02/26/25 07:24 Resp 20 02/26/25 07:24 BP 103/63 02/26/25 07:24 Pulse Ox 96 02/26/25 07:24 O2 Del Method Room Air 02/26/25 07:24 Testing Laboratory Results 02/26/25 06:13 02/26/25 06:13 Urine Color Yellow 02/25/25 22:27 Urine Appearance Clear (Clear) 02/25/25 22:27 Urine pH 7.5 (4.5-7.5) 02/25/25 22:27 Ur Specific [place] > 1.045 (1.000-1.030) H 02/25/25 22:27 Urine Protein Trace (Negative) H 02/25/25 22:27 Urine Glucose (UA) Negative (Negative) 02/25/25 22:27 Urine Ketones Trace (Negative) H 02/25/25 22:27 Urine Nitrite Negative (Negative) 02/25/25 22:27 Ur Leukocyte Esterase Negative (Negative) 02/25/25 22:27 Urine WBC (Auto) 0-5 /hpf (0-5) 02/25/25 22:27 Urine RBC (Auto) 3-5 /hpf (0-2) H 02/25/25 22:27 U Hyaline Cast (Auto) 0-2 /lpf (0-2) 02/25/25 22:27 U Epithel Cells (Auto) 0-2 /hpf (0-2) 02/25/25 22:27 Urine Bacteria (Auto) None Seen (None Seen) 02/25/25 22:27
--- NOTE | 2025-02-26 15:04 | History & Physical Bridge Note ---
Date of Service February 26, 2025 History & Physical Bridge Note I have examined the patient, reviewed the History & Physical and in the interval since the performance of the History & Physical I have noted the following changes of clinical significance: no changes noted
--- NOTE | 2025-02-26 15:08 | Operative Report ---
PG Post Operative Report Pre & Post Diagnosis Operation Date: 02/26/25 07:00 <No data on this case meets the specified criteria> I identified the patient and participated in the time-out.: Yes Procedure error Operation Date: 02/26/25 07:00 <No data on this case meets the specified criteria> Surgeon Ryan Whitehead MD Scratch Brusher errror Estimated Blood Loss 1 Findings Consistent with Post-Op Diagnosis Specimens error Description of Procedure error, wrong note I attest to the content of the Intraoperative Record and any orders documented therein. Any exceptions are noted below.
[2025-02-26] MEDS: LACTATED RINGER'S 1,000 ML IV SCH ×2 (15:10→18:00)
[2025-02-26] MEDS: INDOCYANINE GREEN 25 MG VIAL INJ ONE (15:11)
[2025-02-26] MEDS: FLOSEAL HEMOSTATIC MATRIX 10ML TOP ONE (16:58)
[2025-02-26] MEDS: BUPIVACAINE 0.5 % 5 MG/1 ML MPF 30ML VIAL ONE (16:59)
--- NOTE | 2025-02-26 17:11 | Post Operative Brief Note ---
PG Immediate Post Op with CF Date of Surgery February 26, 2025 Pre & Post Diagnosis Operation Date: 02/26/25 07:00 Pre-Op Diagnosis: Cholecystitis Post-Op Diagnosis: Cholecystitis I identified the patient and participated in the time-out.: Yes Procedure Operation Date: 02/26/25 07:00 Actual Procedures p Robotic Laparoscopic Cholecystectomy(Not Applicable) - Ryan Whitehead MD Surgeon Ryan Whitehead MD Type Inspector Evi Ruvalcaba PA-C Estimated Blood Loss 30 Findings Consistent with Post-Op Diagnosis Severely inflamed gallbladder with areas of necrosis and thickened inflammatory rind Specimens Specimen Description: A) Gallbladder and contents Complications NONE
[2025-02-26] MEDS ORDERED: MoRPHine SULFATE 2 MG/ML CARP IV PRN (17:51)
--- NOTE | 2025-02-26 18:13 | Anesthesiology Progress Note ---
Date of Service February 26, 2025 Anesthesia Post Procedure Vital Signs Vital Signs: Temp Pulse Pulse Pulse Resp BP BP 02/26/25 17:50 98.4 F 88 16 133/79 02/26/25 17:45 91 H 13 125/76 02/26/25 17:35 98.6 F 93 H 19 134/75 02/26/25 17:25 87 13 125/80 02/26/25 17:15 97.7 F 89 12 138/81 02/26/25 15:02 99.0 F 78 20 121/75 02/26/25 07:24 98.1 F 78 20 103/63 02/26/25 00:37 98.4 F 105 H 16 162/92 H 02/26/25 00:00 98.4 F 105 H 16 162/92 H 02/26/25 00:00 93 H 16 157/89 H 02/25/25 23:30 92 H 21 148/101 H 02/25/25 23:09 84 21 165/89 H 02/25/25 22:30 86 14 144/83 H 02/25/25 22:18 81 21 144/82 H 02/25/25 21:43 83 18 165/94 H 02/25/25 21:30 68 15 165/94 H 02/25/25 21:17 73 02/25/25 21:01 97.7 F 106 H 18 173/97 H Pulse Ox O2 Del Method O2 Flow Rate 02/26/25 17:50 91 Room Air 02/26/25 17:45 93 Room Air 0 02/26/25 17:35 93 Room Air 0 02/26/25 17:25 95 Oxymask 4 02/26/25 17:15 96 Oxymask 6 02/26/25 15:02 96 Room Air 02/26/25 07:24 96 Room Air 02/26/25 00:37 98 Room Air 02/26/25 00:00 98 Room Air 02/26/25 00:00 98 02/25/25 23:30 100 02/25/25 23:09 98 02/25/25 22:30 96 02/25/25 22:18 94 02/25/25 21:43 99 02/25/25 21:30 97 02/25/25 21:17 02/25/25 21:01 99 Room Air Pain Intensity Right Upper Abdomen: Pain Intensity: 0 Transfer of Care Handoff Completed per policy Notes Mental Status: alert / awake / arousable and participated in evaluation Patient Amnestic to Procedure: Yes Nausea / Vomiting: adequately controlled Pain: adequately controlled Airway Patency, RR, SpO2: stable & adequate BP & HR: stable & adequate Hydration State: stable & adequate Anesthetic Complications: no major complications apparent and Pt Satisfied with anesthetic care
--- NOTE | 2025-02-26 18:35 | Operative Report ---
PG Post Operative Report Pre & Post Diagnosis Operation Date: 02/26/25 07:00 Pre-Op Diagnosis: Cholecystitis Post-Op Diagnosis: Cholecystitis I identified the patient and participated in the time-out.: Yes Procedure Operation Date: 02/26/25 07:00 Actual Procedures p Robotic Laparoscopic Cholecystectomy(Not Applicable) - Ryan Whitehead MD Surgeon Ryan Whitehead MD Coating Machine Feeder Evi Ruvalcaba PA-C Estimated Blood Loss 30 Findings Consistent with Post-Op Diagnosis Severely inflamed gallbladder with purulent fluid and areas of necrosis Specimens Gallbladder and contents Indications This is a very pleasant 64-year-old male with a history of worsening abdominal pain. Workup reveals acute cholecystitis. He presents now for robotic assisted laparoscopic cholecystectomy, possible open cholecystectomy. The risks of the procedure were discussed with the patient and they include bleeding, infection, injury to surrounding structures, cystic duct stump leak, need for further procedures, ductal injury, and cardiopulmonary events that can occur. Alternatives include no surgery, which patient declines. Patient wishes to proceed with surgery. All questions were answered. Description of Procedure Informed consent was verified and site of surgery was verified and the patient was brought back to operating room. General anesthesia was administered. The patient's abdomen was prepped and draped in the usual sterile fashion. A surgical timeout was performed and there are no issues. Next, a left upper quadrant incision was made and a Veress needle was inserted and the abdomen was insufflated to about 15 mmHg. Next, a 30 degree laparoscope was inserted with a robotic trocar using an Optiview technique. Next, 2 additional robotic ports were placed were placed, 1 was below the umbilicus and one was to the right of the abdomen. An assist port was placed in the right upper quadrant. Next, the gallbladder was visualized and the robot was docked. Next, the gallbladder was gently grasped and the cystic duct and cystic artery were circumferentially dis sected. There was a some general oozing on retraction of the gallbladder and the gallbladder was very thickened and difficult to grasp. During the dissection and grasping of the gallbladder, a hole was created in the midportion of the gallbladder and purulent fluid was expressed and suctioned. The cystic duct and cystic artery were circumferentially dissected and the critical view of safety was obtained with the cystic duct and cystic artery going into the gallbladder with the liver bed behind them and no other structures in between them. There were doubly clipped and divided. The gallbladder had an inflammatory rind and as the gallbladder was dissected off the liver bed, the inflammatory rind could not be lifted off the liver bed without it causing significant bleeding. Therefore it levels left in place. It appeared to be with areas of necrosis of the gallbladder. The gallbladder was then placed in Endo Catch bag and removed under direct vision. The liver bed was examined. T here were some areas of oozing and these were cauterized and Floseal was applied. There was no evidence of any ongoing bleeding or oozing. The clips on the cystic duct and cystic artery were examined and there was no bile drainage. There also was no bleeding. Next, the robot was undocked and the port sites were closed using 4 Monocryl suture. Sterile dressing was applied and the patient was weaned off anesthesia and transferred to recovery in stable condition. He tolerated the procedure well. I attest to the content of the Intraoperative Record and any orders documented therein. Any exceptions are noted below.
[2025-02-26] MEDS: MoRPHine SULFATE 4 MG/ML 1 ML CARP\\VIAL IV PRN (19:12)
[2025-02-27 03:42] VITALS: O2SAT 95
[2025-02-27 06:21] LABS: Hematocrit (blood only) 39.3 % (42.0-52.0); Hemoglobin 13.4 g/dL (14.0-18.0); Mean Corpuscular Hemoglobin 29.5 pg (25.0-34.0); Mean Corpuscular Volume 86.4 fL (80.0-100.0); Platelet Count 184 K/uL (130-400); RDW Standard Deviation 43.0 fL (36.4-46.3); Red Blood Count 4.55 M/uL (4.70-6.10); White Blood Count 13.45 K/ul (4.8-10.8)
[2025-02-27 06:44] LABS: Dohle Bodies 1+; Immature Granulocytes # (auto) 0.06 K/uL (0.01-0.20); Immature Granulocytes % (auto) 0.4 %
[2025-02-27 06:50] LABS: Alanine Aminotransferase 237.0 U/L (7-52); Albumin Globulin Ratio 1.3 (0.9-2); Albumin Level 3.7 gm/dl (3.4-5.0); Alkaline Phosphatase 127.0 U/L (34-104); Anion Gap 8.0 (3-11); Bilirubin,Total 1.2 mg/dl (0.2-1.0); Blood Urea Nitrogen 12.0 mg/dl (6-23); Calcium 8.3 mg/dl (8.6-10.3); Carbon Dioxide 24.0 mmol/L (21-32); Chloride 103.0 mmol/L (98-107); Creatinine Clr Calc Pharmacy 95.8 ml/min; Globulin 2.9 gm/dl (2.5-4.0); Glucose 192.0 mg/dl (70-99(Fasting)); Magnesium 1.9 mg/dl (1.7-2.4); Potassium 4.5 mmol/L (3.5-5.1); Sodium 135.0 mmol/L (136-145); Total Protein 6.6 gm/dl (6.0-8.3)
[2025-02-27 08:41] VITALS: RESP 20; TEMP 98.4
--- NOTE | 2025-02-27 09:39 | Surgery Progress Note ---
<Statement entered by Ryan Whitehead MD - 02/27/25 12:56> I independently saw and examined the patient, and I agree with the assessment and plan of care. Date of Service February 27, 2025 Assessment & Plan (1) Status post laparoscopic cholecystectomy: Plan: POD#1 lap jw WBC 13, Tb 1.2 (1.1) other LFTs are downtrending. Vitals are stable He is tolerating a diet, no n/v. Pain is controlled Stable for discharge to home from our standpoint, agree with a few day course more of abx given intraop findings F/u with Dr. Whitehead in 2 weeks for post op check Admission and Anticipated Discharge Date Admission Date: February 25, 2025 Subjective Patient feels well. Tolerating diet, no n/v. Pain controlled Physical Exam Physical Exam: awake/alert, no distress Respiratory: normal respiratory effort Gastrointestinal (Abdomen): Inspection/Auscultation: + abdominal surgical incision (c/d/i no infection) Percussion/Palpation: + abdomen tender (mild cee incisional discomfort to palpation ) and abdomen soft Results & Data Vital Signs (Past 12 Hours) Vital Signs Temp Pulse Resp BP BP Pulse Ox O2 Del Method 02/27/25 08:00 98.4 F 78 20 133/82 95 Room Air 02/27/25 03:40 98.1 F 93 H 18 151/72 H 95 Room Air 02/26/25 22:37 98.4 F 95 H 02/26/25 22:34 100.4 F H 97 H 18 159/91 H 92 Room Air PG Care Time/CCT Total # of Minutes Spent Total Time Spent with Patient: Total time spent is greater than 50% in coordination of care (as documented) at patient's floor/unit and/or counseling patient: Coding Level of Care Code 43424 Post Operative Follow-Up Diagnoses Status post laparoscopic cholecystectomy Z90.49
--- NOTE | 2025-02-27 09:39 | Discharge Summary ---
Discharge Summary Date of Service February 27, 2025 Principal Dx & Hospital Course #1 = Principal Diagnosis (1) Cholelithiasis and acute cholecystitis without obstruction: (2) Status post laparoscopic cholecystectomy: (3) Hypertension: (4) Coronary artery disease: Plan Patient 64-year-old gentleman presented to the emergency room with approximately 3-day history of right upper quadrant abdominal pain that worsened with meals. Laboratory studies and imaging in the ED is consistent with cholecystitis. Patient was admitted to the hospital. He was made n.p.o. and given IV antibiotics. Surgical consultation was obtained. Following day LFTs increased fairly significantly. Recommended patient undergo MRCP. MRCP confirmed cholecystitis and cholelithiasis but there was no evidence of biliary duct dilatation or choledocholithiasis. With these findings patient was taken to the operating room. Underwent laparoscopic robotic assisted cholecystectomy. Patient's postoperative course was uneventful. He his diet was advanced and he tolerated well. He is up and ambulatory in his room. Other vital signs are stable. He will be discharged home to follow-up with his PCP and surgical provider. Notes For Next Care Provider Continue with routine care Medication Changes From Visit Augmentin for short course cholecystitis Oxycodone as needed for pain Admission HPI Per Admitting Provider History obtained from patient, family, and records. Medical history significant for CAD status post stent (2018), hypertension, hyperlipidemia, urolithiasis status post surgery, GERD, prediabetes, rosacea, past tobacco abuse. 3 days history of intermittent achy right upper quadrant pain with nausea symptoms, somewhat worse after meals. Somewhat burning. Denies chest pain, SOB, fever, chills. Some radiation to the hip right shoulder. Patient had worsening discomfort after dinner tonight. IV Zosyn administered at the ER for cholecystitis. Medical History as above Surgical History : Urologic procedures, appendectomy Family History : Alcoholism, DM, stroke, liver cancer Personal/Social history : Past tobacco abuse, occasional EtOH intake, retired [employer] employee Admission Exam Per Admitting Provider See H&P Discharge Exam Constitutional: Alert, nontoxic HEENT: Mucous membranes moist. Lungs: Clear to auscultation, decreased, no wheezes rales or rhonchi CV: S1-S2, regular Abdomen: Soft, not distended, incisions clean and dry, mild incisional tenderness, good bowel sounds Extremities: No significant edema Neuro: No focal deficits Psych: Cooperative, normal mood Updated Medication List Medication Instructions Recorded Confirmed Type aspirin 81 mg tablet,delayed 81 mg PO QAM 02/25/25 02/25/25 History release atorvastatin 80 mg tablet 80 mg PO QDL 02/25/25 02/25/25 History carvedilol 12.5 mg tablet 12.5 mg PO BID 02/25/25 02/25/25 History lisinopril 10 mg tablet 15 mg PO QAM 02/25/25 02/25/25 History oxycodone 5 mg tablet 5 - 10 mg (1 - 2 x 5 mg) PO 02/26/25 Rx .[id number] PRN pain, for initial therapy, max 6 tabs per day #15 tabs amoxicillin 875 mg-potassium 1 tab PO BID 3 days #6 tabs 02/27/25 Rx clavulanate 125 mg tablet Hospital Stay Data Consultations 02/25/25 22:24 Consult General Surgery Stat 02/25/25 23:20 ED Decision to Admit Stat Procedures Performed Operation Date: 02/26/25 07:00 Actual Procedures p Robotic Laparoscopic Cholecystectomy(Not Applicable) - Ryan Whitehead MD Diagnostic Imagining Performed 02/25/25 21:26 CT Abd and Pelvis [CT abd pelvis IV con only] Stat 02/25/25 22:25 US gallbladder Stat 02/26/25 08:47 MRI MRCP [MR MRCP] Stat Reviewed imaging, laboratory and diagnostic studies. Pertinent findings as below. MRCP: Lizzy lithiasis with cholecystitis, no biliary dilatation or chol edocholithiasis WBCs 13.4 Hemoglobin 13.4 Sodium 135 Potassium 4.5 Creatinine 0.92 Total bilirubin 1.2 AST 128, improved ALT 237, improved Alk phos 127, improved Pending Results Patient Have Any Pending Studies at Discharge: Yes Discharge Instructions Given to Patient (Per Discharging Provider) SPECIAL CARE INSTRUCTIONS: * You have skin glue over your incisions called dermabond. you may shower with this on. It will tend to dissolve and fall off within a couple weeks. Do not pick at the skin glue * You may shower 02/27 . NO soaking in pools or baths for 2 weeks * No lifting greater than 10lbs. No strenuous exercise until cleared by surgeon. Light walking is accepted. * No driving while taking narcotic pain medication; wait at least 3 days * No drinking alcohol while taking narcotic pain medication * May use Ibuprofen/Tylenol over the counter for pain as tolerated. Do not exceed 3grams of Tylenol per 24 hours * Expect some swelling and bruising. * Diet- you may resume your regular diet Call your doctor if: * Temperature above 101 degrees, nausea/vomiting, fever/chills * Pain not relieved by pain medicine ordered * There is increased drainage or redness from any incision * You have any unanswered questions or concerns [phone]. FOLLOW UP VISIT: If not already scheduled, please call the office for a follow-up visit. Office Total Time Total Time Spent Total Time Spent (In Minutes): 27
[2025-02-27 10:41] VITALS: BP 151/72; PULSE 91
--- NOTE | 2025-02-27 12:48 | Electrocardiogram Report ---
Test Reason : Blood Pressure : */* mmHG Vent. Rate : 77 BPM Atrial Rate : 77 BPM P-R Int : 162 ms QRS Dur : 96 ms QT Int : 384 ms P-R-T Axes : 52 -14 6 degrees QTcB Int : 434 ms Normal sinus rhythm Normal ECG No previous ECGs available Confirmed by Vincenzo Raya ([id number]) on 02/27/2025 12:47:42 PM Referred By: REFERRED SELF Confirmed By: Vincenzo Raya
[2025-02-27] MEDS ORDERED: AMOXICILLIN/CLAVULANATE 875 MG TAB PO SCH (17:00)
== END 2025-02-27 11:01 | disposition home or self-care (01) | DRG 419 ==
LOC: ED 21:00 → 3E 23:30

== ENCOUNTER 2025-03-08 18:47 | Inpatient (IN) ==
[2025-03-08] MEDS: PLASMA-LYTE A 1,000 ML IV ONE (19:18)
[2025-03-08] MEDS: ONDANSETRON INJ 2 MG/ML 2 ML VIAL IV STA (19:19)
--- NOTE | 2025-03-08 19:23 | Emergency Department Note ---
Impression & Plan Intra-abdominal abscess, RUQ abdominal pain, Transaminitis ED Provider Note NAME: MATIAS HUGHES AGE: 64 SEX: M : 1960 ARRIVES VIA: Walk-In INFORMANT: Patient, ED PROVIDER(S): Sergei Zhou DO CHIEF COMPLAINT: abdominal pain HPI: This is a 64-year-old male with the PMHx of hypertension, hyperlipidemia, CAD and recent cholecystectomy presenting to [facility] for further evaluation of abdominal pain. Patient is accompanied by his who provide additional history. Patient is postoperative day number#10 from laparoscopic cholecystectomy. Patient states he has been doing well postoperatively. He states that this evening he ate dinner and suddenly had severe upper abdominal pain accompanied by nausea and vomiting following his meal. Patient states he continues to have pain. Patient states he feels exactly similar to when he did previously. He states this feels similar to gallbladder attacks that he was having prior to surgery. They deny fever or chills. No cough or congestion. Denies chest pain or palpitations. No shortness of breath. No urinary complaints. No recent changes in bowel movements. Patient denies recent changes in medications or OTC supplements. Patient offers no other complaints, today. ADDITIONAL HISTORY OBTAINED: Per HPI Chronic Medical/Social Conditions Affecting Care: Per HPI PAST MEDICAL HISTORY: See Below PAST SURGICAL HISTORY: See Below FAMILY HISTORY: See Below SOCIAL HISTORY: See Below HOME MEDICATIONS: See Below ALLERGIES: See Below VITALS: See Below PHYSICAL EXAMINATION: GENERAL: Sitting up in bed, alert, well appearing, well nourished, no distress, non-toxic EYE EXAM: normal conjunctiva. OROPHARYNX: no exudate, no erythema, lips, buccal mucosa, and tongue normal and mucous membranes are moist NECK: supple, no nuchal rigidity, no adenopathy, non-tender LUNGS: Clear to auscultation. Normal chest wall mechanics HEART: no murmurs, regular rate, regular rhythm ABDOMEN: abdomen soft, TTP in the RUQ and epigastrium, no masses, no rebound or guarding. BACK: Back is symmetrical on inspection and there is no deformity, no midline tenderness, no CVA tenderness. SKIN: no rashes and no bruising UPPER EXTREMITIES: upper extremities are grossly normal. LOWER EXTREMITIES: No pitting edema. NEURO EXAM: Normal sensorium, GCS 15, normal speech, no gross weakness of arms, no weakness of legs. MEDICAL DECISION MAKING: Differential diagnoses includes but not limited to biliary leak, postoperative bleeding, postoperative infection, intra-abdominal abscess, appendicitis, bowel obstruction, diverticulitis, malignancy, nephrolithiasis, gastroenteritis, ACS, PNA, pancreatitis, hepatobiliary disease, UTI In summary, this is a 64 year old male who presented with abdominal pain. Differential as above. Nursing notes and pertinent past medical records reviewed. Vital signs reviewed and the patient is afebrile and HDS. History and presentation revealed as above. Reviewed surgery notes from inpatient admission for laparoscopic cholecystectomy. Patient did well postoperatively and was discharged complication. He has since finished antibiotics. Sudden onset severe abdominal pain that is atypical in his postoperative course this evening. Concern for postoperative complication including biliary leak. Will obtain CT abdomen/pelvis for further evaluation. I did reveal the patient's operative note from 02/26. It does appear that the patient had an inflammatory rind per surgery that has to be left in place. Physical examination revealed as above. As a result of my initial evaluation, IV access was established and the patient was placed on CCRM. Therapeutics ordered include IV fluid resuscitation, 4 mg of IV push Zofran for antiemetic, and IV fentanyl for analgesia. Diagnostics interpreted by me include EKG and cardiac monitoring as listed below: -Cardiac Monitoring: An order was placed for continuous cardiac monitoring. The monitor shows a rate of 70-80s with regular rhythm. -ECG: Normal sinus rhythm at a ventricular rate of [address] segment changes to suggest STEMI. Intervals are within normal limits. Patient completed laboratory studies and imaging. Results independently interpreted by me are no leukocytosis or anemia. There is no significant electrolyte derangements or significant kidney dysfunction from baseline. Transaminitis is improved from prior. Normal troponin. Normal lactate. CXR independently interpreted by me reveals no evidence of focal consolidation to suggest pna. No large pneumothorax or pleural effusion. No obvious displaced rib fracture. The patient was managed with multiple doses of IV fentanyl for pain control. CT abdomen/pelvis showed fluid collection within the gallbladder fossa. Suggest possible postoperative complication including intra-abdominal abscess. Will manage with IV Zosyn. Patient had radiology report that this was acute cholecystitis despite recently having a cholecystectomy. Personally discussed with radiology regarding this read. Will obtain a right upper quadrant ultrasound for further evaluation. Patient was discussed with general surgery. Patient was also discussed with the hospitalist and we have decided to proceed with MRCP for further characterization. Ultimately, the decision was made to admit the patient for abdominal pain secondary to postoperative fluid collection with possible remanent gallbladder or intra-abdominal abscess. I discussed the case with the hospitalist service via telephone/Tiger[employer] and they are agreeable to admit the patient to their services. Based on the above, including the patient's age, coexisting illnesses, labs, imaging, and exam findings the decision to treat as an inpatient. I discussed the patient with the hospitalist team who recommended admission to their services. They received the medications, treatments, interventions indicated above and their condition remained guarded. I discussed my findings with the patient and their family and they understand and agree with the treatment plan. All patient / family questions were answered to their satisfaction. Case discussed with consultants including Radiology, Robyn, Dr. Marcano at 2205 regarding CTAP. Remnant GB or fluid collection. Case discussed with General Surgery, Dr. Rogers. He recommends medicine admission and RUQ US. Consults/Care Managements Discussions: Per MDM ER treatment provided: See above Procedures: None Critical Care: None The chart was completed utilizing [employer] Speech voice recognition software. Grammatical errors, random word insertions, pronoun errors, and incomplete sentences are an occasional consequence of this system due to software limitations, ambient noise, and hardware issues. Any formal questions or concerns about the content, text, or information contained within the body of this dictation should be directly addressed to the physician for clarification. Past Med/Surg History Problem List (Updated 03/09/25 @ 00:36 by Sergei Zhou DO) Transaminitis (Acute) Intra-abdominal abscess (Acute) RUQ abdominal pain (Acute) Coronary artery disease Hyperlipidemia Hypertension Cholelithiasis and acute cholecystitis without obstruction Abdominal pain, acute, right upper quadrant (Acute) Acute cholecystitis (Acute) Medical History Encounter for pre-operative examination Surgical History Status post laparoscopic cholecystectomy (02/26/25) 02-26-25 Robotic Laparoscopic Cholecystectomy(Not Applicable) - Ryan Whitehead MD Social History Smoking Status: Never smoker Tobacco Type: Cigarettes Age Started Using Tobacco: 0; Age Quit Using Tobacco: 0; packs per day: 0; Second Hand Exposure: No; Do You Dip or Chew Tobacco: Yes; Hx Alcohol Use: Yes Alcohol type: beer, wine and hard liquor Hx Substance Use: No Preferred Language: Angolan Communication Ability: Effective Ore Washer Required: No Beliefs That Will Affect Care: None and Hoahaoism Current Living Situation: Spouse Feels Safe at Home: Yes Assistive Devices: None Allergies Allergies Allergy/AdvReac Type Severity Reaction Status Date / Time No Known Allergies Allergy Verified 03/04/25 13:19 Home Meds Home Medications Medication Instructions Recorded Confirmed aspirin 81 mg tablet,delayed 81 mg PO QAM 02/25/25 03/08/25 release atorvastatin 80 mg tablet 80 mg PO QDL 02/25/25 03/08/25 carvedilol 12.5 mg tablet 12.5 mg PO BID 02/25/25 03/08/25 lisinopril 10 mg tablet 15 mg PO QAM 02/25/25 03/08/25 Results & Data (ED) Vital Signs Vital Signs - 24 hr 03/08/25 18:58 03/08/25 19:24 03/08/25 19:30 Temperature 36.6 C Temperature Source Temporal Artery Scan Pulse Rate 73 71 Pulse Rate [Apical] Pulse Rate from SpO2 Sensor Pulse Rhythm Regular Respiratory Rate 18 18 Respiratory Effort / Characteristics Non-Labored Spontaneous Respiratory Depth Normal Respiratory Pattern Regular Blood Pressure 148/95 H 195/103 H Blood Pressure [Right Arm] Blood Pressure Mean 112 133 Blood Pressure Mean [Right Arm] Blood Pressure Position Sitting Pulse Oximetry 100 97 95 Oxygen Delivery Method Room Air Room Air Sepsis Recent Fever Within 48 Hours No Sepsis New/Unexplained Change in Mental Status N/A Sepsis Action Taken by Nursing No Action Required 03/08/25 20:09 03/08/25 21:06 03/08/25 21:42 Temperature Temperature Source Pulse Rate 82 80 Pulse Rate [Apical] 84 Pulse Rate from SpO2 Sensor 81 Pulse Rhythm Respiratory Rate 16 16 24 Respiratory Effort / Characteristics Respiratory Depth Respiratory Pattern Blood Pressure 168/91 H 163/91 H Blood Pressure [Right Arm] 132/86 Blood Pressure Mean 107 115 Blood Pressure Mean [Right Arm] 101 Blood Pressure Position Pulse Oximetry 98 99 97 Oxygen Delivery Method Room Air Room Air Room Air Sepsis Recent Fever Within 48 Hours Sepsis New/Unexplained Change in Mental Status Sepsis Action Taken by Nursing 03/08/25 22:00 03/08/25 22:30 03/09/25 00:07 Temperature Temperature Source Pulse Rate 76 84 Pulse Rate [Apical] Pulse Rate from SpO2 Sensor 76 Pulse Rhythm Respiratory Rate 18 Respiratory Effort / Characteristics Respiratory Depth Respiratory Pattern Blood Pressure 126/79 Blood Pressure [Right Arm] Blood Pressure Mean 94 Blood Pressure Mean [Right Arm] Blood Pressure Position Pulse Oximetry 97 Oxygen Delivery Method Room Air Room Air Sepsis Recent Fever Within 48 Hours Sepsis New/Unexplained Change in Mental Status Sepsis Action Taken by Nursing Laboratory Data 03/08/25 19:10 03/08/25 19:10 Lab Results 03/08/25 03/08/25 Range/Units 19:10 19:18 WBC 10.32 (4.8-10.8) K/ul RBC 4.97 (4.70-6.10) M/uL Hgb 14.3 (14.0-18.0) g/dL Hct 42.7 (42.0-52.0) % MCV 85.9 (80.0-100.0) fL MCH 28.8 (25.0-34.0) pg MCHC 33.5 (32.0-36.0) g/dL RDW Std Deviation 40.9 (36.4-46.3) fL RDW Coeff of Tommy 13.1 (11.5-14.5) % Plt Count 392 (130-400) K/uL MPV 9.2 L (9.4-12.4) fL Immature Gran % (Auto) 0.7 % Neut % (Auto) 66.9 % Lymph % (Auto) 23.0 % Sunflower % (Auto) 7.1 % Eos % (Auto) 1.6 % Baso % (Auto) 0.7 % Neut # (Auto) 6.92 H (1.40-6.50) K/uL Lymph # (Auto) 2.37 (1.20-3.40) K/uL Sunflower # (Auto) 0.73 H (0.11-0.59) K/uL Eos # (Auto) 0.16 (0.00-0.50) K/uL Baso # (Auto) 0.07 (0.00-0.20) K/uL Immature Gran # (Auto) 0.07 (0.01-0.20) K/uL Sodium 138 (136-145) mmol/L Potassium 4.4 (3.5-5.1) mmol/L Chloride 102 (98-107) mmol/L Carbon Dioxide 28 (21-32) mmol/L Anion Gap 8 (3-11) BUN 16 (6-23) mg/dl Creatinine 0.81 (0.6-1.4) mg/dl Est Cr Clr Drug Dosing 109.7 ml/min eGFR 98.46 BUN/Creatinine Ratio 19.8 (10-20) Glucose 143 H (70-99(Fasting)) mg/dl Lactate 1.5 (0.4-2.0) mmol/L Calcium 9.1 (8.6-10.3) mg/dl Total Bilirubin 0.7 (0.2-1.0) mg/dl AST 87 H (13-39) U/L ALT 103 H (7-52) U/L Alkaline Phosphatase 208 H (34-104) U/L Troponin I High Sens 7.2 (0-20) pg/ml Total Protein 7.8 (6.0-8.3) gm/dl Albumin 3.6 (3.4-5.0) gm/dl Globulin 4.2 H (2.5-4.0) gm/dl Albumin/Globulin Ratio 0.9 (0.9-2) Lipase 31 (11-82) U/L Administered Medications Fentanyl Citrate (Fentanyl Citrate Pf 100 Mcg/2 Ml Vial) 50 mcg IV Q15M PRN PRN Reason: Pain Stop: 03/22/25 19:05 Last Admin: 03/08/25 20:26 Dose: 50 mcg Documented By: Admin: 03/08/25 19:19 Dose: 50 mcg Documented By: BERNARD Discontinued Medications Parenteral Electrolytes (Plasma-Lyte A Ph 7.4) 1,000 mls @ 999 mls/hr IV .Q1H1M ONE Stop: 03/08/25 20:06 Last Infusion: 03/08/25 20:23 Dose: Infused Documented By: Admin: 03/08/25 19:18 Dose: 999 mls/hr Documented By: BERNARD Piperacillin Sod/Tazobactam Sod (Zosyn) 4.5 gm in 100 mls @ 200 mls/hr IV NOW ONE; Protocol Stop: 03/08/25 21:15 Last Infusion: 03/08/25 22:25 Dose: Infused Documented By: Admin: 03/08/25 21:42 Dose: 200 mls/hr Documented By: MARIN Ioversol (Optiray 320 100ml) 93 ml IV ONCE ONE Stop: 03/08/25 20:02 Last Admin: 03/08/25 20:01 Dose: 93 ml Documented By: JUVENTINO Ondansetron HCl (Ondansetron Inj 2 Mg/Ml 2 Ml Vial) 4 mg IV NOW STA Stop: 03/08/25 19:07 Last Admin: 03/08/25 19:19 Dose: 4 mg Documented By: BERNARD Imaging Data Radiologist's Impression: Abdomen/Pelvis CT 03/08/25 19:06 Exam(s): CT ABDOMEN + PELVIS With Contrast IV Amt: 93 ml opti 320 EXAM: CT Abdomen and Pelvis With Intravenous Contrast CLINICAL HISTORY: Reason for exam: recent cholecystectomy, severe upper abd pain. TECHNIQUE: Axial computed tomography images of the abdomen and pelvis with intravenous contrast. CTDI is 26.13 mGy and DLP is 1347.58 mGy-cm. Automated exposure control was utilized for the study. A dose lowering technique was utilized adhering to the principles of ALARA. CONTRAST: Patient received 93 ml opti 320 of IV contrast COMPARISON: CT abdomen/pelvis on 05/02/2024. FINDINGS: Lung bases: Unremarkable. No mass. No consolidation. Pleural space: Trace right pleural effusion. Mediastinum: Small hiatal hernia. ABDOMEN: Liver: Unremarkable. No mass. Gallbladder and bile ducts: Cholelithiasis. Gallbladder wall thickening and mild pericholecystic fat stranding, raising concern for acute cholecystitis. No ductal dilation. Pancreas: Unremarkable. No mass. No ductal dilation. Spleen: Unremarkable. No splenomegaly. Adrenals: Unremarkable. No mass. Kidneys and ureters: Small nonobstructing bilateral renal stones. No hydronephrosis or obstructing ureteral stone. Stomach and bowel: Evaluation of the stomach is limited by underdistention. Small duodenal diverticulum. Diverticulosis without evidence of diverticulitis. PELVIS: Appendix: Prior appendectomy. Bladder: Unremarkable. No mass. Reproductive: Mild calcifications in the prostate. ABDOMEN and PELVIS: Intraperitoneal space: Unremarkable. No free air. No significant fluid collection. Bones/joints: Degenerative changes of the spine. No acute fracture. No dislocation. Soft tissues: Unremarkable. Vasculature: Atherosclerotic changes of the vasculature. No abdominal aortic aneurysm or dissection. Lymph nodes: Unremarkable. No enlarged lymph nodes. IMPRESSION: 1. Cholelithiasis. Gallbladder wall thickening and mild pericholecystic fat stranding, raising concern for acute cholecystitis. 2. Trace right pleural effusion. 3. Small nonobstructing bilateral renal stones. No hydronephrosis or obstructing ureteral stone. Electronically signed by: Marin Marcano M.D. 03/08/25 21:26 PM Chest X-Ray 03/08/25 19:07 Chest radiograph, one view History: Chest pain Comparison: None Findings: Single AP view of the chest performed. No focal consolidation or pleural effusion. No pneumothorax. The cardiomediastinal silhouette is within normal limits. Normal pulmonary vascularity. No evidence for lymphadenopathy. No visualized bony or soft tissue abnormality. Impression: Normal chest radiograph Electronically signed by Sidney Shepard 03-08-2025 9:36 PM Discharge Plan Visit Data Chief Complaint: Abdominal Pain Stated Complaint: ABD PAIN ED Provider: Sergei Zhou Discharge Problem: Intra-abdominal abscess, RUQ abdominal pain, Transaminitis Patient Disposition: Admitted As Inpatient Condition: Fair Discharge Instructions Interventions: ED Discharge Assessment Last Done: 03/09/25 00:07 Forms Stand Alone Forms: My [facility] [employer] Prescriptions Prescriptions: No Action atorvastatin 80 mg tablet 80 mg PO QDL carvedilol 12.5 mg tablet 12.5 mg PO BID lisinopril 10 mg tablet 15 mg PO QAM aspirin 81 mg Tablet,Delayed Release (Dr/Ec) 81 mg PO QAM Referrals Referrals: Angel Edwards DO [Primary Care Provider] -
[2025-03-08 19:26] LABS: Hematocrit (blood only) 42.7 % (42.0-52.0); Hemoglobin 14.3 g/dL (14.0-18.0); Immature Granulocytes # (auto) 0.07 K/uL (0.01-0.20); Immature Granulocytes % (auto) 0.7 %; Mean Corpuscular Hemoglobin 28.8 pg (25.0-34.0); Mean Corpuscular Volume 85.9 fL (80.0-100.0); Platelet Count 392 K/uL (130-400); RDW Standard Deviation 40.9 fL (36.4-46.3); Red Blood Count 4.97 M/uL (4.70-6.10); White Blood Count 10.32 K/ul (4.8-10.8)
[2025-03-08 19:45] LABS: Alanine Aminotransferase 103.0 U/L (7-52); Albumin Globulin Ratio 0.9 (0.9-2); Albumin Level 3.6 gm/dl (3.4-5.0); Alkaline Phosphatase 208.0 U/L (34-104); Anion Gap 8.0 (3-11); Bilirubin,Total 0.7 mg/dl (0.2-1.0); Blood Urea Nitrogen 16.0 mg/dl (6-23); Calcium 9.1 mg/dl (8.6-10.3); Carbon Dioxide 28.0 mmol/L (21-32); Chloride 102.0 mmol/L (98-107); Creatinine Clr Calc Pharmacy 109.7 ml/min; Globulin 4.2 gm/dl (2.5-4.0); Glucose 143.0 mg/dl (70-99(Fasting)); Lipase 31.0 U/L (11-82); Potassium 4.4 mmol/L (3.5-5.1); Sodium 138.0 mmol/L (136-145); Total Protein 7.8 gm/dl (6.0-8.3)
[2025-03-08] MEDS: OPTIRAY 320 100ml IV ONE (20:01)
--- NOTE | 2025-03-08 21:27 | CT Scan Report ---
Exam(s): CT ABDOMEN + PELVIS With Contrast IV Amt: 93 ml opti 320 EXAM: CT Abdomen and Pelvis With Intravenous Contrast CLINICAL HISTORY: Reason for exam: recent cholecystectomy, severe upper abd pain. TECHNIQUE: Axial computed tomography images of the abdomen and pelvis with intravenous contrast. CTDI is 26.13 mGy and DLP is 1347.58 mGy-cm. Automated exposure control was utilized for the study. A dose lowering technique was utilized adhering to the principles of ALARA. CONTRAST: Patient received 93 ml opti 320 of IV contrast COMPARISON: CT abdomen/pelvis on 05/02/2024. FINDINGS: Lung bases: Unremarkable. No mass. No consolidation. Pleural space: Trace right pleural effusion. Mediastinum: Small hiatal hernia. ABDOMEN: Liver: Unremarkable. No mass. Gallbladder and bile ducts: Cholelithiasis. Gallbladder wall thickening and mild pericholecystic fat stranding, raising concern for acute cholecystitis. No ductal dilation. Pancreas: Unremarkable. No mass. No ductal dilation. Spleen: Unremarkable. No splenomegaly. Adrenals: Unremarkable. No mass. Kidneys and ureters: Small nonobstructing bilateral renal stones. No hydronephrosis or obstructing ureteral stone. Stomach and bowel: Evaluation of the stomach is limited by underdistention. Small duodenal diverticulum. Diverticulosis without evidence of diverticulitis. PELVIS: Appendix: Prior appendectomy. Bladder: Unremarkable. No mass. Reproductive: Mild calcifications in the prostate. ABDOMEN and PELVIS: Intraperitoneal space: Unremarkable. No free air. No significant fluid collection. Bones/joints: Degenerative changes of the spine. No acute fracture. No dislocation. Soft tissues: Unremarkable. Vasculature: Atherosclerotic changes of the vasculature. No abdominal aortic aneurysm or dissection. Lymph nodes: Unremarkable. No enlarged lymph nodes. IMPRESSION: 1. Cholelithiasis. Gallbladder wall thickening and mild pericholecystic fat stranding, raising concern for acute cholecystitis. 2. Trace right pleural effusion. 3. Small nonobstructing bilateral renal stones. No hydronephrosis or obstructing ureteral stone. Electronically signed by: Marin Marcano M.D. 03/08/25 21:26 PM
--- NOTE | 2025-03-08 21:36 | XRay Report ---
Chest radiograph, one view History: Chest pain Comparison: None Findings: Single AP view of the chest performed. No focal consolidation or pleural effusion. No pneumothorax. The cardiomediastinal silhouette is within normal limits. Normal pulmonary vascularity. No evidence for lymphadenopathy. No visualized bony or soft tissue abnormality. Impression: Normal chest radiograph Electronically signed by Sidney Shepard 03-08-2025 9:36 PM
[2025-03-08] MEDS: PIPERACILLIN/TAZOBACTAM 4.5 GM/100 ML BAG IV ONE (21:42)
--- NOTE | 2025-03-08 22:55 | History & Physical Report ---
Date of Service March 08, 2025 Assessment & Plan (1) RUQ abdominal pain: (2) Status post laparoscopic cholecystectomy: Plan 64-year-old male PMHx HTN, HLD, CAD, recent cholecystitis s/p cholecystectomy on 02/26/2025 who is presenting for RUQ pain starting day of arrival. Labs are overall unremarkable with exception of ongoing transaminitis AST 87, ALT 123, and alkaline phosphatase 208 which is actually improved from prior with exception of alkaline phosphatase. Lactate and lipase are WNL. Imaging is suggestive of possible infected remanent of the gallbladder with gallstones or an abscess containing small stones. Admission for ongoing RUQ pain in setting of recent cholecystectomy. #RUQ abdominal pain s/p lap cholecystectomy S/p cholecystectomy 02/26/2025, now presenting with RUQ abdominal pain. History of transaminitis, actually has improved from prior. - CBC WNL; CMP glucose 143, AST 87, ALT 103, alkaline phosphatase 208; lipase 31; lactate 1.5 - LFTs am - CTAP rim-enhancing hypodense structure in small hyperdensities of the gallbla dder fossa may be inflamed remnant of the gallbladder with gallstones or an abscess - NPO midnight - IVF LR @ 100 mL/hr - Zofran prn N/V - Morphine prn pain - Zosyn IV - continue - RUQ US pending - MRCP pending - Sx consulted - appreciate input + recs #CAD- ASA - Hold pending sx consult #HTN- Carvedilol, lisinopril - continue #HLD- Atorvastatin - Hold in setting of transaminitis, if improving then can add back Dispo: Admit, med/sx VTE Prophylaxis: SCDs This document was dictated utilizing [employer]+. Please excuse any grammatical errors that may be secondary to use of this software. Admission and Anticipated Discharge Date Admission Date: 03/08/2025 History of Present Illness Chief Complaint: RUQ pain Primary Care Provider: Angel Edwards, 64-year-old male PMHx HTN, HLD, CAD, recent cholecystitis s/p cholecystectomy on 02/26/2025 who is presenting for RUQ pain starting day of arrival. During initial evaluation, patient is at [facility] so his is present in room at time of visit and discussion is held with her. Patient reportedly started having abdominal pain day of arrival and he has s/p cholecystectomy occurring on 02/26/2025. Will revisit the patient and his when he returns [place] (03/08/2025 @ 2305). Patient evaluated at bedside at 2335; reports at dinner the night of arrival at approximately 1800 he had a sudden onset of severe abdominal pain in his RUQ. States that the pain was described as a burning and constant pain, rating it a 10 out of 10 on the pain scale at its absolute worst. At present, the pain is a 0 out of 10 on the pain scale. He did have some nausea but was unable to vomit. Also reports that he has been constipated over the past few days. He has had a decreased appetite ever since his surgery, and has been unable to eat much over the past day. At approximately 0300 the morning of arrival he did have an episode of becoming diaphoretic during his sleep and had to wake up and change his clothes. This has occurred multiple times over the past week. He has not had any fevers or chills. He has had a slight weight loss, but he states that him and his are trying to actively lose weight. Also, again he has not been eating as well. Denies chest pain, SOB, palpitations, diarrhea, numbness/tingling, fever/chills, URI symptoms, LUTS, weakness, syncope, or falls. ED evaluation revealed CBC without leukocytosis or leukopenia, stable H&H and platelets; CMP glucose 143, AST 87, ALT 103, alk phos 208, globulin 4.2; lipase 31; lactate 1.5; CXR WNL; CTAP rim- enhancing hypodense structure with small hyperdensities gallbladder fossa may be inflamed remanent gallbladder with gallstones versus abscess containing small stones, trace R pleural effusion, small nonobstructing bilateral renal stones.; Provided with Zosyn 4.5 g IV, Plasma-Lyte 1L, Zofran 4 mg IV, and fentanyl 50 mcg IV in ED. Please see Dr. Haile's attestation for adjustments/additions to treatment plan. Allergies Allergy/AdvReac Type Severity Reaction Status Date / Time No Known Allergies Allergy Verified 03/04/25 13:19 Home Medications Medication Instructions Recorded Confirmed Type aspirin 81 mg tablet,delayed 81 mg PO QAM 02/25/25 03/08/25 History release atorvastatin 80 mg tablet 80 mg PO QDL 02/25/25 03/08/25 History carvedilol 12.5 mg tablet 12.5 mg PO BID 02/25/25 03/08/25 History lisinopril 10 mg tablet 15 mg PO QAM 02/25/25 03/08/25 History Past Med/Surg History Problem List Transaminitis (Acute) Intra-abdominal abscess (Acute) RUQ abdominal pain (Acute) Coronary artery disease Hyperlipidemia Hypertension Surgical History Status post laparoscopic cholecystectomy (02/26/25) 02-26-25 Robotic Laparoscopic Cholecystectomy(Not Applicable) - Ryan Whitehead MD Social History Smoking Status: Former smoker Tobacco Type: Cigarettes Age Started Using Tobacco: 0; Age Quit Using Tobacco: 0; packs per day: 0; Smoking End Date: 30 years ago; Second Hand Exposure: No; Do You Dip or Chew Tobacco: Yes; Hx Alcohol Use: Yes Alcohol type: beer, wine and hard liquor Hx Substance Use: No Preferred Language: Korean Communication Ability: Effective Lidar Technician Required: No Beliefs That Will Affect Care: None Current Living Situation: Spouse Other Information That Helps Us Care for You: No Feels Safe at Home: Yes Safety Concerns: Feels Safe At This Time Assistive Devices: Contacts and Glasses Review of Systems Review of Systems: All systems reviewed & are unremarkable except as noted in Subjective Physical Exam Physical Exam: General: No acute distress Skin: Warm and dry Head: Normocephalic, atraumatic Eyes: PERRL, conjunctivae clear, sclera non-icteric ENT: External ear and ear canal without swelling; nose atraumatic; good dentition, tongue normal appearance, pharynx normal Neck: Supple, no LAD Cardio: RRR, no M/G/R, S1 and S2 normal Resp: No respiratory distress, Lungs CTA in all lobes bilaterally, no wheezes, rales, or rhonchi Abdomen: Surgical incision area is healing well; soft, symmetric, nontender; No masses or hepatosplenomegaly; Bowel sounds normoactive MSK: No deformities; pulses palpable and equal; no edema. Neuro: Awake, alert; Sensation intact bilaterally; CN grossly intact Psych: Appropriate mood and affect; good judgement and insight. present in room at time of visit. Results & Data Results & Data Vital Signs (Past 12 Hours) Vital Signs Temp Pulse Pulse Resp BP BP Pulse Ox 03/08/25 22:30 84 03/08/25 22:00 76 18 126/79 97 03/08/25 21:42 84 24 132/86 97 03/08/25 21:06 80 16 163/91 H 99 03/08/25 20:09 82 16 168/91 H 98 03/08/25 19:30 71 18 195/103 H 95 03/08/25 19:24 97 03/08/25 18:58 36.6 C 73 18 148/95 H 100 O2 Del Method 03/08/25 22:30 03/08/25 22:00 Room Air 03/08/25 21:42 Room Air 03/08/25 21:06 Room Air 03/08/25 20:09 Room Air 03/08/25 19:30 03/08/25 19:24 Room Air 03/08/25 18:58 Room Air Laboratory Results 03/08/25 03/08/25 19:18 19:10 WBC 10.32 RBC 4.97 Hgb 14.3 Hct 42.7 MCV 85.9 MCH 28.8 MCHC 33.5 RDW Std Deviation 40.9 RDW Coeff of Tommy 13.1 Plt Count 392 MPV 9.2 L Immature Gran % (Auto) 0.7 Neut % (Auto) 66.9 Lymph % (Auto) 23.0 Iron % (Auto) 7.1 Eos % (Auto) 1.6 Baso % (Auto) 0.7 Neut # (Auto) 6.92 H Lymph # (Auto) 2.37 Iron # (Auto) 0.73 H Eos # (Auto) 0.16 Baso # (Auto) 0.07 Immature Gran # (Auto) 0.07 Sodium 138 Potassium 4.4 Chloride 102 Carbon Dioxide 28 Anion Gap 8 BUN 16 Creatinine 0.81 Est Cr Clr Drug Dosing 109.7 eGFR 98.46 BUN/Creatinine Ratio 19.8 Glucose 143 H Lactate 1.5 Calcium 9.1 Total Bilirubin 0.7 AST 87 H ALT 103 H Alkaline Phosphatase 208 H Troponin I High Sens 7.2 Total Protein 7.8 Albumin 3.6 Globulin 4.2 H Albumin/Globulin Ratio 0.9 Lipase 31 Diagnostic Findings Abdomen/Pelvis CT 03/08/25 19:06 Exam(s): CT ABDOMEN + PELVIS With Contrast IV Amt: 93 ml opti 320 EXAM: CT Abdomen and Pelvis With Intravenous Contrast CLINICAL HISTORY: Reason for exam: recent cholecystectomy, severe upper abd pain. TECHNIQUE: Axial computed tomography images of the abdomen and pelvis with intravenous contrast. CTDI is 26.13 mGy and DLP is 1347.58 mGy-cm. Automated exposure control was utilized for the study. A dose lowering technique was utilized adhering to the principles of ALARA. CONTRAST: Patient received 93 ml opti 320 of IV contrast COMPARISON: CT abdomen/pelvis on 05/02/2024. FINDINGS: Lung bases: Unremarkable. No mass. No consolidation. Pleural space: Trace right pleural effusion. Mediastinum: Small hiatal hernia. ABDOMEN: Liver: Unremarkable. No mass. Gallbladder and bile ducts: Cholelithiasis. Gallbladder wall thickening and mild pericholecystic fat stranding, raising concern for acute cholecystitis. No ductal dilation. Pancreas: Unremarkable. No mass. No ductal dilation. Spleen: Unremarkable. No splenomegaly. Adrenals: Unremarkable. No mass. Kidneys and ureters: Small nonobstructing bilateral renal stones. No hydronephrosis or obstructing ureteral stone. Stomach and bowel: Evaluation of the stomach is limited by underdistention. Small duodenal diverticulum. Diverticulosis without evidence of diverticulitis. PELVIS: Appendix: Prior appendectomy. Bladder: Unremarkable. No mass. Reproductive: Mild calcifications in the prostate. ABDOMEN and PELVIS: Intraperitoneal space: Unremarkable. No free air. No significant fluid collection. Bones/joints: Degenerative changes of the spine. No acute fracture. No dislocation. Soft tissues: Unremarkable. Vasculature: Atherosclerotic changes of the vasculature. No abdominal aortic aneurysm or dissection. Lymph nodes: Unremarkable. No enlarged lymph nodes. IMPRESSION: 1. Cholelithiasis. Gallbladder wall thickening and mild pericholecystic fat stranding, raising concern for acute cholecystitis. 2. Trace right pleural effusion. 3. Small nonobstructing bilateral renal stones. No hydronephrosis or obstructing ureteral stone. Electronically signed by: Marin Marcano M.D. 03/08/25 21:26 PM ADDENDUM: Exam(s): CT ABDOMEN + PELVIS With Contrast IV Amt: 93 ml opti 320 CORRECTION: Patient actually reportedly had cholecystectomy approximately 10 days ago. Given this information, the rim-enhancing hypodense structure containing small hyperdensities in the gallbladder fossa may represent an inflamed remnant gallbladder with gallstones versus abscess containing small stones. Further evaluation could be performed with ERCP or MRCP if clinically indicated. Chest X-Ray 03/08/25 19:07 Chest radiograph, one view History: Chest pain Comparison: None Findings: Single AP view of the chest performed. No focal consolidation or pleural effusion. No pneumothorax. The cardiomediastinal silhouette is within normal limits. Normal pulmonary vascularity. No evidence for lymphadenopathy. No visualized bony or soft tissue abnormality. Impression: Normal chest radiograph Electronically signed by Sidney Shepard 03-08-2025 9:36 PM Medications Administered Zosyn 4.5 g IV Plasma-Lyte 1L Fentanyl 50 mcg IV Code Status & VTE Plan Code Status Full Supervising Physician Co-Signing Physician Notes Attending addendum: I have physically seen this patient, have supervised the NEENA's activities, and agree with the H&P unless as otherwise noted. Assessment and Plan: The patient is a 64-year-old male with past medical history including hypertension, hyperlipidemia, CAD, recent cholecystitis s/p cholecystectomy on 02/26/2025, who presents to the emergency department with right upper quadrant pain starting the day of arrival. Imaging suggest possible infected remnant of gallbladder with gallstones or abscess containing small stones. RUQ pain s/p Lap Jesika- CT scan abdomen pelvis with rim-enhancing hypodense structure gallbladder fossa that may be inflamed remnant of the gallbladder with gallstones misty abscess NPO LR @ 100mls/hr Morphine prn pain Zosyn 4.5g IV q8h RUQ US pending MRCP pending General surgery consult CAD/HTN- Hold ASA continue carvedilol and lisinopril with hold parameters Remaining orders and notations as noted PG Care Time/CCT Total # of Minutes Spent Total Time Spent with Patient: Total time spent is greater than 50% in coordination of care (as documented) at patient's floor/unit and/or counseling patient: Coding Level of Care Code 73187 INT INP/OBS CARE 3/75MIN Diagnoses RUQ abdominal pain R10.11 Status post laparoscopic cholecystectomy Z90.49
[2025-03-08] MEDS ORDERED: MoRPHine SULFATE 2 MG/ML CARP IV PRN ×2 (23:07)
[2025-03-09] MEDS ORDERED: ONDANSETRON INJ 2 MG/ML 2 ML VIAL IV PRN (01:14)
[2025-03-09] MEDS: LACTATED RINGER'S 1,000 ML IV SCH (01:22)
--- NOTE | 2025-03-09 01:26 | Ultrasound Report ---
Exam(s): US GALLBLADDER EXAM: US Abdomen Limited, Right Upper Quadrant CLINICAL HISTORY: collection of fluid, post jw. TECHNIQUE: Real-time ultrasound of the right upper quadrant with image documentation. COMPARISON: 02/25/2025. FINDINGS: Liver: 16.3 cm length. Redemonstrated 9.4 x 8 x 9.4 mm echogenic lesion left lobe of the liver, consistent with a hemangioma. No intrahepatic bile duct dilation. Gallbladder: Status post cholecystectomy. Complex 5.8 x 6.9 x 4.9 cm thick-walled/septated fluid collection with debris in the gallbladder fossa. Minimal peripheral vascularity. Small echogenic foci noted dependently which may represent surgical clips, less likely calculi. Common bile duct: 5.3 mm diameter. No stones. No dilation. Pancreas: Unremarkable as visualized. Right kidney: 12.2 cm length. Multiple echogenic foci consistent with nonobstructing calculi measuring 8 x 4 x 7 mm and 5 x 4 x 5 mm. No solid mass. No hydronephrosis. IMPRESSION: Patient is post cholecystectomy. Complex septated fluid collection in the gallbladder fossa with debris as described above. Considerations include a postoperative hematoma versus infection/abscess. Small calculi/gallstones versus surgical clips in the gallbladder fossa. No biliary ductal dilatation. No obstructive uropathy. Bilateral non-obstructing calculi. Electronically signed by: Luiz Gaytan M.D. 03/09/25 01:25 AM
--- NOTE | 2025-03-09 02:46 | Magnetic Resonance Report ---
EXAM: MR MRCP CLINICAL HISTORY: POD10 Cholecystectomy, fluid collection, ?remnant TECHNIQUE: Multiplanar/multisequence MRI of the abdomen was performed without use of gadolinium. 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 FINDINGS: The liver is of normal signal intensity without evidence of a hepatic mass. No evidence of intrahepatic biliary ductal dilatation. A cystic lesion measuring [id number] is seen in the gall bladder fossa region. The collection shows irregular thick sanabria with adjoining fat stranding. Small duodenal diverticulum seen at ampulla- stable. Limited evaluation of the bowel secondary to peristalsis, however, demonstrates no definitive abnormality. The adrenal glands demonstrate no gross mass. The pancreas is unremarkable. The kidneys demonstrate no evidence of contour-deforming mass lesion. Mild ascites is seen. Mild right pleural effusion- new finding. IMPRESSION: 1. Cystic lesion measuring [id number] is seen in gall bladder fossa region with irregular thick sanabria and adjoining fat stranding - may represent a collection or the gall bladder remnant in view of recent cholecystectomy. 2. Mild ascites - new. Mild right pleural effusion- new finding. 3. Small duodenal diverticulum seen at ampulla- stable 4. No evidence of biliary obstruction in this evaluation. Electronically signed by Isaias Gatica 03-09-2025 02:45 AM
[2025-03-09] MEDS: PIPERACILLIN/TAZOBACTAM 4.5 GM/100 ML BAG IV SCH (05:22)
[2025-03-09 06:51] LABS: Alanine Aminotransferase 146.0 U/L (7-52); Albumin Level 3.5 gm/dl (3.4-5.0); Alkaline Phosphatase 213.0 U/L (34-104); Bilirubin,Total 0.6 mg/dl (0.2-1.0); Total Protein 6.5 gm/dl (6.0-8.3)
--- NOTE | 2025-03-09 09:41 | Surgery Consultation ---
Date of Consultation March 09, 2025 Assessment & Plan (1) RUQ abdominal pain: (2) Intra-abdominal abscess: Plan 64-year-old 11 days status post robotic cholecystectomy for acute gangrenous cholecystitis presents with right upper quadrant pain and possible intra- abdominal abscess versus around the gallbladder. In reading the op note, I believe this represents more of a postoperative fluid collection/abscess. He is feeling much better. We will continue the IV antibiotics. He may be started on a clear liquid diet. We will continue to monitor. Will continue to monitor his labs. If his LFTs continue to rise, he may require GI consult for possible ERCP, but will hold off for now. Will continue to monitor. History of Present Illness Reason for Consultation: Right upper quadrant pain possible abscess Requesting Physician: Sidney Webb MD Attending Physician: Sidney Webb MD History of Present Illness 64-year-old gentleman who presents with right upper quadrant pain. He underwent robotic cholecystectomy on February 26 of this year for a gangrenous purulent cholecystitis. He was slowly convalescing at home. He did have some chills and sweats at night. He did not have much of an appetite. Yesterday evening he ate eggs and sausage and developed severe right upper quadrant abdominal pain. In the emergency department, a CT scan and ultrasound demonstrated what appears to be either a complex fluid collection/abscess versus a remnant gallbladder. Currently he is feeling much improved and denies any pain. Allergies Allergy/AdvReac Type Severity Reaction Status Date / Time No Known Allergies Allergy Verified 03/04/25 13:19 Home Medications Medication Instructions Recorded Confirmed Type aspirin 81 mg tablet,delayed 81 mg PO QAM 02/25/25 03/08/25 History release atorvastatin 80 mg tablet 80 mg PO QDL 02/25/25 03/08/25 History carvedilol 12.5 mg tablet 12.5 mg PO BID 02/25/25 03/08/25 History lisinopril 10 mg tablet 15 mg PO QAM 02/25/25 03/08/25 History Patient History Surgical History Status post laparoscopic cholecystectomy (02/26/25) 02-26-25 Robotic Laparoscopic Cholecystectomy(Not Applicable) - Ryan Whiteheda MD Social History Smoking Status: Former smoker Tobacco Type: Cigarettes Age Started Using Tobacco: 0; Age Quit Using Tobacco: 0; packs per day: 0; Smoking End Date: 30 years ago; Second Hand Exposure: No; Do You Dip or Chew Tobacco: Yes; Hx Alcohol Use: Yes Alcohol type: beer, wine and hard liquor Hx Substance Use: No Preferred Language: Uzbek Communication Ability: Effective Plater Hot Dip Required: No Beliefs That Will Affect Care: None Current Living Situation: Spouse Other Information That Helps Us Care for You: No Feels Safe at Home: Yes Safety Concerns: Feels Safe At This Time Assistive Devices: Contacts and Glasses Review of Systems Review of Systems: All systems reviewed & are unremarkable except as noted in HPI & below Physical Exam Constitutional: WD/WN, vitals as above Eyes: PERRL, conjunctivae normal, anicteric sclerae Neck: trachea midline, no thyromegaly Respiratory: normal respiratory effort; no respiratory distress Cardiovascular: Rate/Rhythm: regular rate and regular rhythm Gastrointestinal (Abdomen): Inspection/Auscultation: abdomen normal to inspection; abdomen not distended Percussion/Palpation: abdomen soft; abdomen nontender, no guarding and abdomen not rigid Skin: no rashes, warm and dry Psychiatric: A+Ox3, euthymic affect Results & Data Vital Signs (Past 12 Hours) Vital Signs Temp Pulse Pulse Pulse Resp BP BP 03/09/25 08:20 36.4 C L 69 16 103/61 03/09/25 01:01 36.7 C 61 16 03/09/25 00:07 03/08/25 22:30 84 03/08/25 22:00 76 18 126/79 03/08/25 21:42 84 24 BP Pulse Ox O2 Del Method 03/09/25 08:20 97 Room Air 03/09/25 01:01 122/76 96 Room Air 03/09/25 00:07 Room Air 03/08/25 22:30 03/08/25 22:00 97 Room Air 03/08/25 21:42 132/86 97 Room Air Laboratory Results 03/09/25 03/08/25 03/08/25 Range/Units 05:25 19:18 19:10 WBC 10.32 (4.8-10.8) K/ul RBC 4.97 (4.70-6.10) M/uL Hgb 14.3 (14.0-18.0) g/dL Hct 42.7 (42.0-52.0) % MCV 85.9 (80.0-100.0) fL MCH 28.8 (25.0-34.0) pg MCHC 33.5 (32.0-36.0) g/dL RDW Std Deviation 40.9 (36.4-46.3) fL RDW Coeff of Tommy 13.1 (11.5-14.5) % Plt Count 392 (130-400) K/uL MPV 9.2 L (9.4-12.4) fL Immature Gran % (Auto) 0.7 % Neut % (Auto) 66.9 % Lymph % (Auto) 23.0 % Saunders % (Auto) 7.1 % Eos % (Auto) 1.6 % Baso % (Auto) 0.7 % Neut # (Auto) 6.92 H (1.40-6.50) K/uL Lymph # (Auto) 2.37 (1.20-3.40) K/uL Saunders # (Auto) 0.73 H (0.11-0.59) K/uL Eos # (Auto) 0.16 (0.00-0.50) K/uL Baso # (Auto) 0.07 (0.00-0.20) K/uL Immature Gran # (Auto) 0.07 (0.01-0.20) K/uL Sodium 138 (136-145) mmol/L Potassium 4.4 (3.5-5.1) mmol/L Chloride 102 (98-107) mmol/L Carbon Dioxide 28 (21-32) mmol/L Anion Gap 8 (3-11) BUN 16 (6-23) mg/dl Creatinine 0.81 (0.6-1.4) mg/dl Est Cr Clr Drug Dosing 109.7 ml/min eGFR 98.46 BUN/Creatinine Ratio 19.8 (10-20) Glucose 143 H (70-99(Fasting)) mg/dl Lactate 1.5 (0.4-2.0) mmol/L Calcium 9.1 (8.6-10.3) mg/dl Total Bilirubin 0.6 0.7 (0.2-1.0) mg/dl Direct Bilirubin 0.1 (0-0.2) mg/dl AST 95 H 87 H (13-39) U/L ALT 146 H 103 H (7-52) U/L Alkaline Phosphatase 213 H 208 H (34-104) U/L Troponin I High Sens 7.2 (0-20) pg/ml Total Protein 6.5 7.8 (6.0-8.3) gm/dl Albumin 3.5 3.6 (3.4-5.0) gm/dl Globulin 4.2 H (2.5-4.0) gm/dl Albumin/Globulin Ratio 0.9 (0.9-2) Lipase 31 (11-82) U/L Diagnostic Findings Exam(s): CT ABDOMEN + PELVIS With Contrast IV Amt: 93 ml opti 320 EXAM: CT Abdomen and Pelvis With Intravenous Contrast CLINICAL HISTORY: Reason for exam: recent cholecystectomy, severe upper abd pain. TECHNIQUE: Axial computed tomography images of the abdomen and pelvis with intravenous contrast. CTDI is 26.13 mGy and DLP is 1347.58 mGy-cm. Automated exposure control was utilized for the study. A dose lowering technique was utilized adhering to the principles of ALARA. CONTRAST: Patient received 93 ml opti 320 of IV contrast COMPARISON: CT abdomen/pelvis on 05/02/2024. FINDINGS: Lung bases: Unremarkable. No mass. No consolidation. Pleural space: Trace right pleural effusion. Mediastinum: Small hiatal hernia. ABDOMEN: Liver: Unremarkable. No mass. Gallbladder and bile ducts: Cholelithiasis. Gallbladder wall thickening and mild pericholecystic fat stranding, raising concern for acute cholecystitis. No ductal dilation. Pancreas: Unremarkable. No mass. No ductal dilation. Spleen: Unremarkable. No splenomegaly. Adrenals: Unremarkable. No mass. Kidneys and ureters: Small nonobstructing bilateral renal stones. No hydronephrosis or obstructing ureteral stone. Stomach and bowel: Evaluation of the stomach is limited by underdistention. Small duodenal diverticulum. Diverticulosis without evidence of diverticulitis. PELVIS: Appendix: Prior appendectomy. Bladder: Unremarkable. No mass. Reproductive: Mild calcifications in the prostate. ABDOMEN and PELVIS: Intraperitoneal space: Unremarkable. No free air. No significant fluid collection. Bones/joints: Degenerative changes of the spine. No acute fracture. No dislocation. Soft tissues: Unremarkable. Vasculature: Atherosclerotic changes of the vasculature. No abdominal aortic aneurysm or dissection. Lymph nodes: Unremarkable. No enlarged lymph nodes. IMPRESSION: 1. Cholelithiasis. Gallbladder wall thickening and mild pericholecystic fat stranding, raising concern for acute cholecystitis. 2. Trace right pleural effusion. 3. Small nonobstructing bilateral renal stones. No hydronephrosis or obstructing ureteral stone. Electronically signed by: Marin Marcano M.D. 03/08/25 21:26 PM Exam(s): US GALLBLADDER EXAM: US Abdomen Limited, Right Upper Quadrant CLINICAL HISTORY: collection of fluid, post jw. TECHNIQUE: Real-time ultrasound of the right upper quadrant with image documentation. COMPARISON: 02/25/2025. FINDINGS: Liver: 16.3 cm length. Redemonstrated 9.4 x 8 x 9.4 mm echogenic lesion left lobe of the liver, consistent with a hemangioma. No intrahepatic bile duct dilation. Gallbladder: Status post cholecystectomy. Complex 5.8 x 6.9 x 4.9 cm thick-walled/septated fluid collection with debris in the gallbladder fossa. Minimal peripheral vascularity. Small echogenic foci noted dependently which may represent surgical clips, less likely calculi. Common bile duct: 5.3 mm diameter. No stones. No dilation. Pancreas: Unremarkable as visualized. Right kidney: 12.2 cm length. Multiple echogenic foci consistent with nonobstructing calculi measuring 8 x 4 x 7 mm and 5 x 4 x 5 mm. No solid mass. No hydronephrosis. IMPRESSION: Patient is post cholecystectomy. Complex septated fluid collection in the gallbladder fossa with debris as described above. Considerations include a postoperative hematoma versus infection/abscess. Small calculi/gallstones versus surgical clips in the gallbladder fossa. No biliary ductal dilatation. No obstructive uropathy. Bilateral non-obstructing calculi. Electronically signed by: Luiz Gaytan M.D. 03/09/25 01:25 AM Dictated: 03/09/25124 Transcribed: 03/09/25124 - ----- EXAM: MR MRCP CLINICAL HISTORY: POD10 Cholecystectomy, fluid collection, ?remnant TECHNIQUE: Multiplanar/multisequence MRI of the abdomen was performed without use of gadolinium. 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 FINDINGS: The liver is of normal signal intensity without evidence of a hepatic mass. No evidence of intrahepatic biliary ductal dilatation. A cystic lesion measuring [id number] is seen in the gall bladder fossa region. The collection shows irregular thick sanabria with adjoining fat stranding. Small duodenal diverticulum seen at ampulla- stable. Limited evaluation of the bowel secondary to peristalsis, however, demonstrates no definitive abnormality. The adrenal glands demonstrate no gross mass. The pancreas is unremarkable. The kidneys demonstrate no evidence of contour-deforming mass lesion. Mild ascites is seen. Mild right pleural effusion- new finding. IMPRESSION: 1. Cystic lesion measuring 1x1m7dn is seen in gall bladder fossa region with irregular thick sanabria and adjoining fat stranding - may represent a collection or the gall bladder remnant in view of recent cholecystectomy. 2. Mild ascites - new. Mild right pleural effusion- new finding. 3. Small duodenal diverticulum seen at ampulla- stable 4. No evidence of biliary obstruction in this evaluation. Electronically signed by Isaias Gatica 03-09-2025 02:45 AM Dictated: 03/09/25 0058 Transcribed:
--- NOTE | 2025-03-09 12:11 | Hospitalist Progress Note ---
Date of Service March 09, 2025 Assessment & Plan (1) RUQ abdominal pain: (2) Status post laparoscopic cholecystectomy: Plan Endy is a 64yo male with PMH HTN, HLD, CAD, and recent cholecystitis s/p cholecystectomy (02/26/2025) who presented to the ER for RUQ pain on 03/08. Labs overall unremarkable, with exception of ongoing transaminitis, which is actually improved from prior admission. Lactate and lipase WNL. Imaging suggestive of possible abscess/infected remnant of gallbladder. Patient is admitted for eval and tx of possible abscess. Clinically significantly improved, continuing admission for pain management and IV abx. #RUQ abdominal pain s/p lap jw - Pt had cholecystectomy 02/26/2025 due to acute gangrenous cholecystitis, now presenting with RUQ abdominal pain. Initial vitals notable for elevated BP (to 195/103). Labs unremarkable except elevated glucose (143) and ongoing transaminitis (AST 87, ALT 103, ALP 208). Lipase wnl at 31; lactate 1.5. CTAP w/ rim-enhancing hypodense structure containing small hyperdensities in the gall bladder fossa. Abd US w/ Complex 5.8 x 6.9 x 4.9 cm thick-walled/septated fluid collection with debris in the gallbladder fossa. MRCP confirmed cystic lesion measuring [id number] in gallbladder fossa with irregular thick sanabria and adjoining fat stranding. - Pt was made NPO at midnight & given IVF (LR @ 100 mL/hr). Advanced to clear liquids per surgery rec - PRN Zofran for N/V and Morphine for pain - Started on Zosyn 4.5mg IV q8h - continue - Surgery consulted, appreciate input: rec continuing IV abx for a few days, reassessing pt and reimaging to determine d/c timing #CAD- ASA - Held #HTN - Carvedilol, lisinopril - held while NPO; would recommend updating patient's regimen per current guidelines before resuming #HLD- Atorvastatin - Held in setting of transaminitis Dispo: Med/surg --> home hopefully by 03/14 VTE ppx: SCDs Diet: CLL Admission and Anticipated Discharge Date Admission Date: March 08, 2025 Supervising Physician Co-Signing Physician Notes Attending attestation Pt seen and examined in concert with Dr. Post. In agreement with the documented findings as noted in the resident documentation with any exceptions or additions as noted here. Significant improvement in abdominal pain, nausea and malaise since presentation after long course of periprandial symptoms charanjit w/ etOH consumption (one time, 1.5 beers) without further fever. VS as noted. On examination, S1/S2 nl RRR no MCG. CTAB. Abd mildly TTP RUQ ND BS+ve Inflammation at cholecystectomy site conerning for infection/abscess - gen surg consult - no intervention at this time, will continue abx therapy and monitor for clinical improvement. Agree w/ US for evaluation for pocket of fluid in the setting of CT scan with postoperative artifact. Else see resident documentation as noted. Subjective NAEO. Labs and vitals reassuring. Patient is feeling very well today. Denies any ongoing abdominal pain, nausea, vomiting, SEVILLA, CP, or SOB. at bedside reports patient never really started feeling better since surgery on 02/26, and then 2-3 days ago began having fevers/chills/night sweats. They say this is the best he has felt in week. No new questions or complaints for the team today. Review of Systems Review of Systems: As per HPI. Physical Exam Physical Exam: Gen: NAD, WD/WN HEENT: NCAT, normal conjunctiva, MMM CV: RRR, no m/r/g, normal S1/S2, no LE edema Resp: CTAB, symmetrical chest rise, breathing unlabored Abd: Soft, NT/ND, +BS MSK: Full ROM, no gross deformities on inspection Skin: Warm, dry, well-perfused, 4 approx 2-3cm abdominal incisions all clean and healing well Neuro: AOx3, CN II-XII grossly intact, no focal deficits Psych: Full, euthymic affect. Speech pace normal. Thoughts linear and goal- directed. Results & Data Results & Data Vital Signs (Past 12 Hours) Vital Signs Temp Pulse Resp BP BP Pulse Ox O2 Del Method 03/09/25 08:20 36.4 C L 69 16 103/61 97 Room Air 03/09/25 01:01 36.7 C 61 16 122/76 96 Room Air Resident Activity Tracking Resident Involvement: Resident Care Provided Care Provided: Adult [facility]
[2025-03-09] MEDS ORDERED: Nursing to Pharmacy Communication SCH (15:45)
[2025-03-10 08:39] LABS: Alanine Aminotransferase 102.0 U/L (7-52); Albumin Globulin Ratio 1.0 (0.9-2); Albumin Level 3.7 gm/dl (3.4-5.0); Alkaline Phosphatase 180.0 U/L (34-104); Anion Gap 8.0 (3-11); Bilirubin,Total 0.7 mg/dl (0.2-1.0); Blood Urea Nitrogen 7.0 mg/dl (6-23); Calcium 9.1 mg/dl (8.6-10.3); Carbon Dioxide 31.0 mmol/L (21-32); Chloride 102.0 mmol/L (98-107); Creatinine Clr Calc Pharmacy 93.3 ml/min; Globulin 3.8 gm/dl (2.5-4.0); Glucose 104.0 mg/dl (70-99(Fasting)); Potassium 4.1 mmol/L (3.5-5.1); Sodium 141.0 mmol/L (136-145); Total Protein 7.5 gm/dl (6.0-8.3)
--- NOTE | 2025-03-10 08:47 | Hospitalist Progress Note ---
Date of Service March 10, 2025 Assessment & Plan (1) RUQ abdominal pain: (2) Status post laparoscopic cholecystectomy: Plan Endy is a 64yo male with PMH HTN, HLD, CAD, and recent cholecystitis s/p cholecystectomy (02/26/2025) who presented to the ER for RUQ pain on 03/08. Labs overall unremarkable, with exception of ongoing transaminitis, which is actually improved from prior admission. Lactate and lipase WNL. Imaging suggestive of possible abscess/infected remnant of gallbladder. Patient is admitted for eval and tx of possible abscess. Clinically significantly improved, continuing admission for pain management and IV abx. #RUQ abdominal pain s/p lap jw - Pt had cholecystectomy 02/26/2025 due to acute gangrenous cholecystitis, now presenting with RUQ abdominal pain. Initial vitals notable for elevated BP (to 195/103). Labs unremarkable except elevated glucose (143) and ongoing transaminitis (AST 87, ALT 103, ALP 208). Lipase wnl at 31; lactate 1.5. CTAP w/ rim-enhancing hypodense structure containing small hyperdensities in the gall bladder fossa. Abd US w/ Complex 5.8 x 6.9 x 4.9 cm thick-walled/septated fluid collection with debris in the gallbladder fossa. MRCP confirmed cystic lesion measuring 7a9m7me in gallbladder fossa with irregular thick sanabria and adjoining fat stranding. - Pt was made NPO on admission & given IVF. Advanced to clear liquids per surgery rec on 03/09. Now back to NPO pending possible IR drainage of RUQ fluid collection. - PRN Zofran for N/V and Morphine for pain - Started on Zosyn 4.5mg IV q8h - continue - Surgery consulted, appreciate input: rec continuing IV abx for a few days; due to recurrence/worsening of sx, contacted IR and made tentative plans to attempt drainage of fluid collection this afternoon. #CAD- ASA - Held #HTN - Carvedilol, lisinopril - held while NPO; would recommend updating patient's regimen per current guidelines before resuming #HLD- Atorvastatin - Held in setting of transaminitis Dispo: Med/surg --> home hopefully by 03/14 VTE ppx: SCDs Diet: NPO pending procedure Admission and Anticipated Discharge Date Admission Date: March 08, 2025 Supervising Physician Co-Signing Physician Notes I personally examined the patient and verified all carr points of history and exam, discussed case, and agree with decision making with Dr Post Feeling pretty good after drainage. Mostly just hungry. Vitals noted, in general he is awake and alert pleasant no distress. Brown drainage in bag. Gallbladder fossa abscessappears to have been a very infected and necrotic gallbladder at time of surgery. Doing better on IV antibiotics, now anticipate ongoing improvement with drainage. Await culture. Continue antibiotics for now. Appreciate surgical assistance. Otherwise as above. DVT proph - ambulation Subjective NAEO. Patient seen and examined at bedside. Reports feeling well over all but is once again having RUQ pain and R shoulder pain. RUQ pain occurs whenever he breathes - more of an ache when he inhales, and feels like a sharper and more intense (3-4/10) pain when he exhales. He says it feels as though something "pops" back in place. Does not happen with shallow breathing. The shoulder pain reminds him of gas-related pain he's had in the past. He declines any medications for either issue, stating the sx are noticeable but not debilitating and he does not want intervention until it gets to that point. Denies SEVILLA, any trauma, SOB, CP, n/v, dysuria. Ambulating normally, doing well on clear liquid diet Review of Systems Review of Systems: As per HPI. Physical Exam Physical Exam: Gen: NAD, WD/WN HEENT: NCAT, normal conjunctiva, MMM CV: RRR, no m/r/g, normal S1/S2, no LE edema Resp: CTAB, symmetrical chest rise, breathing unlabored Abd: Soft, NT/ND, +BS MSK: Full ROM, no gross deformities on inspection Skin: Warm, dry, well-perfused, abdominal incisions healing well Neuro: AOx3, CN II-XII grossly intact, no focal deficits Psych: Full, euthymic affect. Speech pace normal. Thoughts linear and goal- directed. Results & Data Results & Data Vital Signs (Past 12 Hours) Vital Signs Temp Pulse Resp BP Pulse Ox O2 Del Method 03/10/25 07:05 37.0 C 60 16 151/91 H 96 Room Air 03/09/25 22:34 Room Air 03/09/25 22:28 36.7 C 63 16 140/87 97 Room Air Resident Activity Tracking Resident Involvement: Resident Care Provided Care Provided: Adult Hospital Medicine
[2025-03-10 09:45] LABS: Hematocrit (blood only) 42.8 % (42.0-52.0); Hemoglobin 14.3 g/dL (14.0-18.0); Immature Granulocytes # (auto) 0.02 K/uL (0.01-0.20); Immature Granulocytes % (auto) 0.3 %; Mean Corpuscular Hemoglobin 29.1 pg (25.0-34.0); Mean Corpuscular Volume 87.0 fL (80.0-100.0); Platelet Count 331 K/uL (130-400); RDW Standard Deviation 41.6 fL (36.4-46.3); Red Blood Count 4.92 M/uL (4.70-6.10); White Blood Count 7.92 K/ul (4.8-10.8)
--- NOTE | 2025-03-10 09:58 | Surgery Progress Note ---
Date of Service March 10, 2025 Assessment & Plan (1) Intra-abdominal abscess: Plan: Patient is s/p robotic cholecystectomy by Dr. Whitehead on 01/27/2025 and was admitted on 03/09/2025 due to upper quadrant abdominal pain and findings of intra- abdominal abscess. - Patient states that he is feeling better this morning, denies any nausea, vomiting or worsening abdominal pain. However he still does have some right upper quadrant abdominal pain but is tolerable. - Afebrile, WBC 7.9, receiving IV antibiotics - Did discuss patient's case with interventional radiology this morning, tentative plans to attempt drainage of fluid collection this afternoon. Will make patient n.p.o. for now, may restart diet after drainage. -Coag studies pending prior to drainage Admission and Anticipated Discharge Date Admission Date: March 08, 2025 Subjective Patient seen and evaluated this morning at bedside, states that he is overall feeling well compared to time of admission. However does still have intermittent right upper quadrant abdominal pain at times with certain movement and deep breathing. Patient afebrile and WBC 7.9 LFTs downtrending this morning Physical Exam Constitutional: WD/WN, vitals as above Respiratory: normal respiratory effort, lungs clear to auscultation Cardiovascular: Rate/Rhythm: regular rate Gastrointestinal (Abdomen): Abdomen soft, nondistended, +TTP in the right upper quadrant with palpation. Surgical sites are clean, dry, intact with surgical glue in place. No overlying signs of infection. Skin: no rashes, warm and dry Results & Data Vital Signs (Past 12 Hours) Vital Signs Temp Pulse Resp BP Pulse Ox O2 Del Method 03/10/25 07:05 37.0 C 60 16 151/91 H 96 Room Air 03/09/25 22:34 Room Air 03/09/25 22:28 36.7 C 63 16 140/87 97 Room Air PG Care Time/CCT Total # of Minutes Spent Total Time Spent with Patient: Total time spent is greater than 50% in coordination of care (as documented) at patient's floor/unit and/or counseling patient: [place]oding [place] [address] Post Operative Follow-Up Patient Type Established History Problem Focused Exam Problem Focused Medical Decision Making Straight Forward Diagnoses Intra-abdominal abscess K65.1
[2025-03-10 10:13] LABS: INR 1.1 (0.9-1.1); Prothrombin Time 11.4 Seconds (9.0-12.0)
--- NOTE | 2025-03-10 15:23 | Ultrasound Report ---
Ultrasound guided gallbladder fossa fluid collection drain placement INDICATION: Gallbladder fossa fluid collection PROCEDURE: Procedure and risks were explained. Informed consent was obtained. A final timeout was com pleted. The abdomen was prepped and draped in sterile fashion. 1% lidocaine was utilized for skin ane sthesia. Utilizing ultrasound guidance, an 18-gauge Chiba needle was advanced into the complex gallbladder fos sa fluid collection. Ultrasound images were obtained. A 0.035 Amplatz wire was introduced and exchang ed for an 8 Turkmen locking pigtail catheter. Approximately 20 mL of fluid was aspirated and sent to l ab for analysis. The catheter was sutured to the skin with 2-0 Prolene and placed to gravity bag calixto bass. The patient tolerated the procedure well. Vital signs be monitored postprocedure. IMPRESSION: Gallbladder fossa drain placement as above. Performed, dictated, and signed by Kashif Cowan PA-C; to be co-signed by Dr. Arias Martinez. Electronically signed by: Arias Martinez M.D. 03/10/2025 3:24 PM
--- NOTE | 2025-03-10 18:04 | Billing Data ---
Date of Service March 10, 2025 Coding Level of Care Code 18318 SUB INP/OBS CARE 3MIN
[2025-03-10 20:12] VITALS: O2SAT 96
[2025-03-11] MEDS: ACETAMINOPHEN 325 MG TAB PO PRN (00:02)
[2025-03-11 06:26] LABS: Alanine Aminotransferase 72.0 U/L (7-52); Albumin Globulin Ratio 1.0 (0.9-2); Albumin Level 3.5 gm/dl (3.4-5.0); Alkaline Phosphatase 144.0 U/L (34-104); Anion Gap 9.0 (3-11); Bilirubin,Total 0.7 mg/dl (0.2-1.0); Blood Urea Nitrogen 9.0 mg/dl (6-23); Calcium 8.7 mg/dl (8.6-10.3); Carbon Dioxide 27.0 mmol/L (21-32); Chloride 103.0 mmol/L (98-107); Creatinine Clr Calc Pharmacy 83.4 ml/min; Globulin 3.4 gm/dl (2.5-4.0); Glucose 99.0 mg/dl (70-99(Fasting)); Potassium 3.7 mmol/L (3.5-5.1); Sodium 139.0 mmol/L (136-145); Total Protein 6.9 gm/dl (6.0-8.3)
[2025-03-11 07:10] VITALS: PULSE 56; RESP 16; TEMP 97.9
--- NOTE | 2025-03-11 09:01 | Surgery Progress Note ---
<Statement entered by Ryan Whitehead MD - 03/11/25 13:09> I independently saw and examined the patient and I agree with the assessment and plan of care. Date of Service March 11, 2025 Assessment & Plan (1) Intra-abdominal abscess: (2) RUQ abdominal pain: Plan Patient is s/p robotic cholecystectomy by Dr. Whitehead on 01/27/2025 and was admitted on 03/09/2025 due to upper quadrant abdominal pain and findings of intra- abdominal abscess, now s/p IR drainage of this RUQ intra-abd abscess. Patient appears to be recovering well, states that his abdominal pain has improved after IR drainage, tolerating a regular diet without any nausea or vomiting, passing flatus and has had bowel movements. Clinically, appears to be doing very well and we feel that he may be stable for discharge from a surgical standpoint with plans to follow up with his surgeon, Dr. Whitehead for assessment for drain removal within 1 week. Would recommend transitioning to oral antibiotics, Augmentin, for another week as well and will plan to follow up on culture results from the IR drain. Remainder of his care per the primary medicine team. Admission and Anticipated Discharge Date Admission Date: March 08, 2025 Subjective Patient is s/p robotic cholecystectomy by Dr. Whitehead on 01/27/2025 and was admitted on 03/09/2025 due to upper quadrant abdominal pain and findings of intra- abdominal abscess, now s/p IR drainage of this RUQ intra-abd abscess yesterday. Patient states that he feels well, does admit to some right sided abdominal pain, worse with movement, better at rest, well tolerated with current pain medication regime and with minimal narcotics requirements. Patient states that after IR drainage his breathing seems to have improved and no longer has pain with deep inspiration. He has been tolerating a regular diet without any nausea or vomiting, passing flatus and had a BM yesterday that was described as loose, non-bloody. Physical Exam Physical Exam: Gen: Awake and alert, resting comfortably in bed in NAD CV: RRR PULM: non-labored breathing Abd: Abd soft, minimal tender to right upper quadrant, at the IR drain insertion site, non-distended, no guarding or rigidity. IR drain with dark, blood-tinged, bilious drainage noted. ext: no edema to bilateral lower ext, SCDs in place, non-tender, feet warm and well perfused Results & Data Vital Signs (Past 12 Hours) Vital Signs Temp Pulse Resp BP Pulse Ox O2 Del Method 03/11/25 07:09 36.6 C 56 L 16 137/87 96 Room Air 03/10/25 22:19 37.0 C 62 18 127/77 96 Room Air PG Care Time/CCT Total # of Minutes Spent Total Time Spent with Patient: Total time spent is greater than 50% in coordination of care (as documented) at patient's floor/unit and/or counseling patient: C[place] [address] Post Operative Follow-Up Patient Type Established History Problem Focused Exam Problem Focused Medical Decision Making Straight Forward Diagnoses Intra-abdominal abscess K65.1 RUQ abdominal pain R10.11
--- NOTE | 2025-03-11 12:02 | Discharge Summary ---
Date of Service March 11, 2025 Admission HPI Per Admitting Provider 64-year-old male PMHx HTN, HLD, CAD, recent cholecystitis s/p cholecystectomy on 02/26/2025 who is presenting for RUQ pain starting day of arrival. During initial evaluation, patient is at MRI so his is present in room at time of visit and discussion is held with her. Patient reportedly started having abdominal pain day of arrival and he has s/p cholecystectomy occurring on 02/26/2025. Will revisit the patient and his when he returns from [place] (03/08/2025 @ 2305). Patient evaluated at bedside at 2335; reports at dinner the night of arrival at approximately 1800 he had a sudden onset of severe abdominal pain in his RUQ. States that the pain was described as a burning and constant pain, rating it a 10 out of 10 on the pain scale at its absolute worst. At present, the pain is a 0 out of 10 on the pain scale. He did have some nausea but was unable to vomit. Also reports that he has been constipated over the past few days. He has had a decreased appetite ever since his surgery, and has been unable to eat much over the past day. At approximately 0300 the morning of arrival he did have an episode of becoming diaphoretic during his sleep and had to wake up and change his clothes. This has occurred multiple times over the past week. He has not had any fevers or chills. He has had a slight weight loss, but he states that him and his are trying to actively lose weight. Also, again he has not been eating as well. Denies chest pain, SOB, palpitations, diarrhea, numbness/tingling, fever/chills, URI symptoms, LUTS, weakness, syncope, or falls. ED evaluation revealed CBC without leukocytosis or leukopenia, stable H&H and platelets; CMP glucose 143, AST 87, ALT 103, alk phos 208, globulin 4.2; lipase 31; lactate 1.5; CXR WNL; CTAP rim- enhancing hypodense structure with small hyperdensities gallbladder fossa may be inflamed remanent gallbladder with gallstones versus abscess containing small stones, trace R pleural effusion, small nonobstructing bilateral renal stones.; Provided with Zosyn 4.5 g IV, Plasma-Lyte 1L, Zofran 4 mg IV, and fentanyl 50 mcg IV in ED. Please see Dr. Haile's attestation for adjustments/additions to treatment plan. Principal Diagnosis RUQ abscess s/p juliette Discharge Exam Gen: NAD, WD/WN HEENT: NCAT, normal conjunctiva, MMM CV: RRR, no m/r/g, normal S1/S2, no LE edema Resp: CTAB, symmetrical chest rise, breathing unlabored Abd: Soft, NT/ND, +BS, drain intact w/ small amt dark bloody drainage MSK: Full ROM, no gross deformities on inspection Skin: Warm, dry, well-perfused, abdominal incisions healing well Neuro: AOx3, CN II-XII grossly intact, no focal deficits Psych: Full, euthymic affect. Speech pace normal. Thoughts linear and goal- directed. Discharge Data Allergies Allergy/AdvReac Type Severity Reaction Status Date / Time No Known Allergies Allergy Verified 03/04/25 13:19 Consultations 03/08/25 22:15 ED Decision to Admit Stat 03/09/25 01:14 Consult General Surgery Routine Ordered Studies 03/08/25 19:06 CT abd pelvis IV con only Stat 03/08/25 22:06 US gallbladder Stat 03/09/25 22:37 MR MRCP Stat 03/10/25 09:02 IR AD US periton/retro w/gdnce Routine Hospital Course (1) RUQ abdominal pain: (2) Status post laparoscopic cholecystectomy: Malini Schumacher is a 64yo male with PMH HTN, HLD, CAD, and recent cholecystitis s/p cholecystectomy (02/26/2025) who presented to the ER for RUQ pain on 03/08. Labs overall unremarkable, with exception of ongoing transaminitis, which is actually improved from prior admission. Lactate and lipase WNL. Imaging suggestive of possible abscess/infected remnant of gallbladder. Patient is admitted for eval and tx of possible abscess. Clinically significantly improved after IV abx and RUQ drainage, and now safe for discharge. #RUQ abdominal pain s/p lap juliette - Pt had cholecystectomy 02/26/2025 due to acute gangrenous cholecystitis, presenting with RUQ abdominal pain. Initial vitals notable for elevated BP (to 195/103). Labs unremarkable except transaminitis, which is resolving by time of discharge. Lipase wnl at 31; lactate 1.5. CTAP w/ rim-enhancing hypodense structure containing small hyperdensities in the gallbladder fossa. Abd US w/ Complex 5.8 x 6.9 x 4.9 cm thick-walled/septated fluid collection with debris in the gallbladder fossa. MRCP confirmed cystic lesion measuring [id number] in gallbladder fossa with irregular thick sanabria and adjoining fat stranding. - Pt was made NPO on admission & given IVF. Advanced to clear liquids per surgery rec on 03/09. Back to NPO on 03/10 for IR drainage of RUQ fluid collec tion. Procedure went well, patient advanced to normal diet which he tolerated well, and was asymptomatic (apart from discomfort d/t presence of drain) by discharge - Given Zosyn 4.5mg IV q8h during admission. Will continue on Augmentin 875-125 BID. Should discuss drain removal and exact duration of abx therapy at Gen Surg f/u - scheduled for 03/12 at 11am #CAD- ASA - Held during admission, can resume #HTN - Carvedilol, lisinopril - held while NPO; can resume at discharge - Would recommend updating patient's regimen per current guidelines, e.g. finding alternative for carvedilol #HLD- Atorvastatin - Held in setting of transaminitis, can sume Dispo: Med/surg --> home VTE ppx: SCDs Diet: regular Total Time Total Time Spent Total Time Spent (In Minutes): <30 Discharge Plan Discharge Items Patient Disposition: Home - Self-Care Reason For Visit: RUQ ADBOMINAL PAIN S/P JULIETTE Discharge Diagnosis: RUQ abscess s/p juliette Condition on Discharge: Fair Activity: Per Instructions section Lifting: None Non-emergency contact: Surgeon Call non-emergency contact if: your symptoms worsen, your pain is not controlled, your pain is concerning for you, your temperature is above 101.5 and your wound pain has increased Follow-up/Referrals: Angel Edwards DO [Primary Care Provider] - 03/14/25 4:00 pm Ryan Whitehead MD [Surgeon] - 03/18/25 11:00 am (within 1 week for assessment for IR drain removal) Diet: Regular Addtl Attending Provider Instructions: SPECIAL CARE INSTRUCTIONS: * You have skin glue over your incisions called dermabond. you may shower with this on. It will tend to dissolve and fall off within a couple weeks. Do not pick at the skin glue * You may shower 03/12/2025 . NO soaking in pools or baths for 2 weeks. Please keep IR drain insertion site clean and dry and place a 4x4 gauze over drain after showering. * No lifting greater than 10lbs. No strenuous exercise until cleared by surgeon. Light walking is accepted. * No driving while taking narcotic pain medication; wait at least 3 days * No drinking alcohol while taking narcotic pain medication * May use Ibuprofen/Tylenol over the counter for pain as tolerated. Do not exceed 3grams of Tylenol per 24 hours * Expect some swelling and bruising. * Diet- you may resume your regular diet Call your doctor if: * Temperature above 101 degrees, nausea/vomiting, fever/chills * Pain not relieved by pain medicine ordered * There is increased drainage or redness from any incision * You have any unanswered questions or concerns [phone]. FOLLOW UP VISIT: If not already scheduled, please call the office for a follow-up visit. Office IR drain care * Please care for your surgical drain as you have been instructed prior to discharge from the hospital. Empty drain 2-3x/daily and bring a log with you to the office of the daily output. Outside of emptying the drain please keep it to gravity bag at all times. May change dressing over the drain insertion site daily with dry gauze or a drain sponge and cover with medical tape daily. 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 Imaging showed a fluid collection consistent with an abscess. You were treated with IV antibiotics and a drain was placed in the right upper quadrant of your abdomen. You were deemed safe for discharge when the fluid collection was drained and your symptoms improved. You will need to continue oral antibiotics at least until the drain is removed, and follow up closely with General Surgery outpatient. Medications Your medication list has been reviewed and reconciled. An updated list is included with your discharge paperwork; please review this list closely and make note of any changes. We sent a prescription for Augmentin (amoxicillin-clavulanate) to your pharmacy. Take one 875-125mg tablet twice daily. A 14-day prescription has been provided but you likely will not need that full duration; consult with General Surgery about when to stop your antibiotics. Take your medications as instructed; do not skip a dose. Make sure all of your doctors know every medicine you are taking (including [id number] medicines, vitamins, and supplements). Follow-up appointments: Make a follow-up appointment with your PCP within the next week. It is very important that you follow up with them shortly after discharge from the hospital. You have an appointment with Dr. Whitehead of General Surgery tomorrow (03/12) at 11am. If you have any questions, their office can be reached at [phone]. Keep all your follow-up appointments as already scheduled. If you cannot make an appointment, notify your provider. Contact your PCP if your symptoms return or worsen. Call 911 or go to the ER if you experience any of the following: Sudden, severe abdominal pain or nausea/vomiting Severe chest pain, or chest pain that radiates (moves) to your jaw or arm Sudden, severe shortness of breath or difficulty breathing Thank you for allowing us to participate in your care. Pending Studies at Discharge: Yes Studies:: culture and sensitivities from IR drain Stand-Alone Forms: My [facility] Year Up, Smoking Cessation Medications and DC Order Prescriptions: New amoxicillin-pot clavulanate 875-125 mg tablet 1 tab PO BID 14 Days Qty: 28 0RF Continued atorvastatin 80 mg tablet 80 mg PO QDL carvedilol 12.5 mg tablet 12.5 mg PO BID lisinopril 10 mg tablet 15 mg PO QAM aspirin 81 mg Tablet,Delayed Release (Dr/Ec) 81 mg PO QAM Discharge Orders: Discharge Order (Routine); Ordered 03/11/25 Ordered By: Catracho Post Admission Data Admit Date/Time: 03/08/25 23:07 Attending Provider: Jag Tian Admit Provider: Kumar Haile Primary Care Provider: Angel Edwards Other Providers: Kumar Haile; Tyron Rogers Other Interventions: Discharge Summary Assessment (RN) Last Done: 03/11/25 12:49 Supervising Physician Co-Signing Physician Notes I personally examined the patient and verified all carr points of history and exam, discussed case, and agree with decision making with Dr Post feels good overall. Feels up to going home. Vitals noted, in general he is awake and alert pleasant no distress. Brown drainage in bag. Breathing unlabored no accessory muscle use good effort. Skin without rashes pallor or icterus. Gallbladder fossa abscessappears to have been a very infected and necrotic gallbladder at time of surgery. Doing better status post drainage. Safe/stable for home on p.o. antibiotics and close/ongoing surgical follow-up. Cultures are pending. DVT proph - ambulation utilized throughout his stay Resident Activity Tracking Resident Involvement: Resident Care Provided Care Provided: Adult Hospital Medicine
[2025-03-11 12:50] VITALS: BP 143/85
--- NOTE | 2025-03-11 13:07 | Billing Data ---
Date of Service March 11, 2025 Coding Level of Care Code 73552 IN/OBS DISCH 30 MIN/LESS
--- NOTE | 2025-03-12 06:13 | Electrocardiogram Report ---
Test Reason : Blood Pressure : */* mmHG Vent. Rate : 64 BPM Atrial Rate : 64 BPM P-R Int : 156 ms QRS Dur : 90 ms QT Int : 418 ms P-R-T Axes : 55 0 25 degrees QTcB Int : 431 ms Normal sinus rhythm Normal ECG When compared with ECG of 26-Feb-2025 15:18, No significant change was found Confirmed by Juan Wu ([id number]) on 03/12/2025 6:13:00 AM Referred By: REFERRED SELF Confirmed By: Juan Wu
== END 2025-03-11 13:23 | disposition home or self-care (01) | DRG 862 ==
LOC: ED 18:47 → SUATTDRO 23:07 → 2N 23:07 → 3E 03-09 22:28